=== PATIENT | female | born 1970 | race Caucasian/White ===

== ENCOUNTER → 2018-04-14 07:24 | Outpatient (CLI) | payer OTHER, SELFPAY ==
[2018-04-14 07:43] LABS: Basophils % 0.4 % (0.1-2.0); Eosinophils # 0.1 K/mm3 (0.0-0.4); Eosinophils % 1.6 % (0.1-12.0); Hematocrit 45.3 % (37.0-47.0); Hemoglobin 14.6 g/dL (12.2-16.2); Lymphocytes # 1.3 K/mm3 (0.7-4.5); Mean Corpuscular HGB Conc 32.2 g/dL (31.8-35.4); Mean Corpuscular Hemoglobin 31.3 pg (27.0-31.2); Mean Corpuscular Volume 97.3 fl (81-99); Mean Platelet Volume 7.4 fl (7.4-10.4); Monocytes # 0.3 K/mm3 (0.1-1.0); Monocytes % 4.7 % (1.7-9.3); Neutrophils # 3.7 K/mm3 (1.8-7.8); Neutrophils % 69.3 % (37.0-80.0); Platelet Count 331 K/mm3 (142-424); Red Blood Count 4.65 M/mm3 (4.20-5.40); Red Cell Distribution Width 13.5 % (11.5-17.5); White Blood Count 5.3 K/mm3 (4.8-10.8)
[2018-04-14 09:34] LABS: Alanine Aminotransferase 27 U/L (12-78); Albumin Level 3.9 gm/dL (3.4-5.0); Alkaline Phosphatase 107 U/L (46-116); Aspartate Amino Transferase 14 U/L (15-37); Bilirubin,Direct 0.1 mg/dL (0.0-0.2); Bilirubin,Indirect 0.4 mg/dL (0.0-0.9); Bilirubin,Total 0.5 mg/dL (0.2-1.0); Blood Urea Nitrogen 6 mg/dL (7-18); Calcium 8.9 mg/dL (8.5-10.1); Carbon Dioxide 23 mmol/L (21.0-32.0); Chloride 108 mmol/L (98-107); Chol/HDL Ratio 5.5 (1-3.5); Cholesterol 224 mg/dL (140-200); Creatinine,Serum 0.73 mg/dL (0.55-1.02); Estimated Glomerular Filt Rate 86 ml/min (>60); GFR (African American) 104 ML/MIN (>60); Glucose 88 mg/dL (74-106); HDL Cholesterol 41 mg/dL (29-89); LDL Cholesterol 147 mg/dL (0-130); Sodium 143 mmol/L (136-145); Total Protein,Serum 7.3 gm/dL (6.4-8.2); Triglycerides 182 mg/dL (30-200); VLDL Cholesterol 36 mg/dL (0-40)
== END ==
PROVIDERS: PCP Family Medicine; Visit Provider Internal Medicine
DX: E78.5 Hyperlipidemia, unspecified (principal); I25.10 Atherosclerotic heart disease of native coronary artery without angina pectoris; I42.9 Cardiomyopathy, unspecified
CPT/HCPCS: 36415; 80048; 80061; 80076; 85025

== ENCOUNTER 2018-08-12 07:57 | Observation (INO) ==
--- NOTE | 2018-08-12 08:07 | Emergency Department Note ---
ED Disposition Clinical Impression: Chest pain Qualifiers: Chest pain type: precordial pain Qualified Code(s): R07.2 - Precordial pain Disposition: Still a Patient Condition on Discharge: Good - Critical Care Critical Care Time: No Attestation: On , the high probability of a clinically significant, sudden or life threatening deterioration of the following system(s) required my full and direct attention, intervention and personal management. The time I documented below is in addition to time spent performing reported procedures but includes the following listed in this critical care notation. Medical Decision Making - Blake Inquiry Pt receiving controlled substance: No Vital Signs: 08/12/18 07:57 08/12/18 08:17 08/12/18 08:19 Temperature 98.1 F Temperature Source Oral Pulse Rate [Apical] 70 71 73 Respiratory Rate 18 18 Blood Pressure [Right Arm] 142/84 H 142/84 H 128/87 Blood Pressure Mean [Right Arm] 103 103 100 Blood Pressure Source [Right Arm] Automatic Cuff Automatic Cuff Automatic Cuff Blood Pressure Position [Right Arm] Sitting Sitting 02 Sat by Pulse Oximetry 100 99 98 Oxygen Delivery Method Room Air Room Air Room Air 08/12/18 08:28 08/12/18 08:43 08/12/18 09:05 Temperature Temperature Source Pulse Rate [Apical] 73 78 78 Respiratory Rate 18 18 18 Blood Pressure [Right Arm] 110/70 113/68 114/73 Blood Pressure Mean [Right Arm] 83 83 86 Blood Pressure Source [Right Arm] Automatic Cuff Automatic Cuff Automatic Cuff Blood Pressure Position [Right Arm] Sitting Sitting Sitting 02 Sat by Pulse Oximetry 99 97 98 Oxygen Delivery Method Room Air Room Air - Lab Data Lab Results 08/12/18 08:05: WBC 5.1, RBC 4.76, Hgb 14.7, Hct 46.6, MCV 97.8, MCH 30.8, MCHC 31.5 L, RDW 13.7, Plt Count 327, MPV 7.0 L, Neut % (Auto) 61.3, Lymph % (Auto) 30.4, [place] % (Auto) 6.8, Eos % (Auto) 1.0, Baso % (Auto) 0.6, Neut # (Auto) 3.1, Lymph # (Auto) 1.5, [place] # (Auto) 0.3, Eos # (Auto) 0.1, Baso # (Auto) 0.0 08/12/18 08:05: Sodium 139, Potassium 3.8, Chloride 104, Carbon Dioxide 26, Anion Gap 12.8, BUN 6 L, Creatinine 0.79, Estimated Creat Clear 102, Estimated GFR 78, Est GFR ( Amer) 95, Glucose 105, Calcium 8.6, Troponin I < 0.02 08/12/18 08:30: Urine Color Yellow, Urine Appearance Sl cloudy, Urine pH 7.0, Ur Specific [place] 1.010, Urine Protein Negative, Urine Glucose (UA) Negative, Urine Ketones Negative, Urine Blood Trace-l, Urine Nitrate Negative, Urine Bilirubin Negative, Urine Urobilinogen 0.2, Ur Leukocyte Esterase Negative, Urine RBC 3-5, Urine WBC Occasional, Ur Squamous Epith Cells 3-5, Urine Bacteria 1+ Result diagrams: 08/12/18 08:05 08/12/18 08:05 Orders (Tests/Meds): ED MEDICATIONS Generic Name Dose Route Start Last Admin Trade Name Freq PRN Reason Stop Dose Admin Diphenhydramine HCl 50 mg 08/12/18 09:38 Benadryl 50mg/1ml Vial IV 08/12/18 09:39 ONCE ONE Sodium Chloride 1,000 mls @ 50 mls/hr 08/12/18 09:45 Sod Chlor 0.9% 1000ml Bag IV 09/11/18 09:44 .Q20H LOIS Nitroglycerin 0.4 mg 08/12/18 08:15 08/12/18 08:17 Nitrostat 0.4mg Sl Tablet SL 09/11/18 08:14 0.4 mg Q5MINP PRN Administration Chest Pain Sodium Chloride 10 ml 08/12/18 09:38 Saline Flush 10ml Syringe IV 09/11/18 09:37 NEEDED PRN Maintain IV Site Sodium Chloride 10 ml 08/12/18 09:38 Saline Flush 10ml Syringe IV 09/11/18 09:37 NEEDED PRN Maintain IV Site Discontinued Medications Generic Name Dose Route Start Last Admin Trade Name Freq PRN Reason Stop Dose Admin Aspirin 243 mg 08/12/18 08:04 08/12/18 08:07 Aspirin 81mg Chewable Tablet PO 08/12/18 08:05 243 mg ONCE ONE Administration Nitroglycerin 1 gm 08/12/18 08:35 08/12/18 08:40 Nitroglycerin 1 Inch Oint Udp TD 08/12/18 08:36 1 gm ONCE ONE Administration ORDERS Category Date Time Status UA [Urinalysis and Microscopic] Stat Lab 08/12/18 08:30 Ordered - Radiology Data #1 Image(s): Chest Image Reviewed: Yes I reviewed the patient's radiology image Preliminary Findings: Normal/NAD - ECG Data Tracing #1 EKG interpreted by Yaya Mijares MD: Rhythm: sinus Rate: 77 [place]: normal Ectopy: none Conduction: normal ST Segment Changes: none T Wave Changes: none Q Waves: none No evidence of acute ischemia or injury - Physician Consults Physician Consulted: Rubens Time: 08:30 Reason -: Cardiology Eval/Care Comment/Response: seen by Fallon in ED. Admit to PCP. Dr. Art will be here at 3 pm Additional Consult: Ankit Time: 09:30 Reason -: Admission Comment/Response: Agrees to admit the patient to the hospital. We discussed the patient's clinical information, including history, exam, laboratory and radiology results and ED course. Per hospital procedure, I will write temporary bridge inpatient orders on the patient. Specific orders requested by the admitting physician: Per cardiology. Serial cardiac enzymes. General Adult HPI - General Chief complaint: Chest Pain Stated complaint: chest pain Time Seen by Provider: 08/12/18 08:06 Mode of Arrival: Ambulatory Limitations: No Limitations Description of Symptoms (Recalled from ER Triage Doc. by RN): Pt report chest tightness and pain radiating down her L arm. Pt reports she was leaving her house at approx 0700 this morning began feeling hot all over and then began having chest tightness. - History of Present Illness HPI narrative: At approximately 6:50 AM she developed chest pressure going into both arms. Not really short of breath but a feeling of tenseness or anxiety. Some discomfort i n the back of her neck. Sweatiness. No nausea. Current discomfort is 3/10 in the precordial area. She had 81 mg aspirin this morning, no nitroglycerin prior to arrival. Prior history of [place] in stents done in [place] by Dr. Bedoya 3 years ago. No stress test or angiogram since then. She does continue to smoke. This is the most significant episode of chest pain she has had since her stent placement. - Related Data Home Medications Medication Instructions Recorded Confirmed aspirin 81 mg tablet,delayed 81 mg PO DAILY 04/15/18 08/12/18 release omeprazole 20 mg capsule,delayed 20 mg PO DAILY 04/15/18 08/12/18 release Ezetimibe 10 mg PO DAILY 08/12/18 08/12/18 Rosuvastatin Calcium 20 mg PO DAILY 08/12/18 08/12/18 Previous Rx's Medication Instructions Recorded nitroglycerin 0.4 mg sublingual 0.4 mg SUBLINGUAL Q5-15M PRN #30 04/16/18 tablet tab Allergies Allergy/AdvReac Type Severity Reaction Status Date / Time ibuprofen [IBUPROFEN] Allergy Intermediate I-RASH Verified 08/12/18 08:34 [facility] History - Hepatitis A Screen Drug use history?: No High risk sexual behaviors?: No History of sexually transmitted infection?: No Currently employed?: No Childcare worker?: No Do you have indoor plumbing?: Yes Do you have electricity?: Yes Attestation statement:: This patient has been screened for Hepatitis A risk factors. I have reviewed the patient's past medical history: Yes Medical History: Denies:: Cancer, Diabetes Mellitus Type 1, Diabetes Mellitus Type 2, MRSA - Social History Smoking Status: Current every day smoker Alcohol Intake: never - Psychiatric History Expresses thoughts of harming self/others: None Suicide Plan Description: No Plan ROS Obtained: Yes All systems reviewed & no additional complaints - Constitutional Constitutional: Denies fever(s) - Cardiovascular Cardiovascular: Reports chest pain, Reports diaphoresis - Respiratory Respiratory: No dyspnea - Gastrointestinal Gastrointestingal: Reports: nausea. Denies: vomiting Physical Exam - General General appearance: alert, in no apparent distress - Head Head exam: atraumatic, normocephalic - Eye Eye exam: Present: normal appearance, PERRL, EOMI - ENT ENT exam: Present: mucous membranes moist - Neck Neck exam: Present: normal inspection, trachea midline - Chest Chest inspection: Present: normal inspection, symmetric chest wall rise - Respiratory Respiratory exam: Present: normal lung sounds bilaterally. Absent: respiratory distress - Cardiovascular Cardiovascular exam: Present: regular rate, normal rhythm, normal heart sounds - Abdominal Exam Abdominal exam: Present: soft. Absent: distention, tenderness - Extremities Exam Extremities exam: Present: normal inspection, full ROM, other (Peripheral pulses 2+ and symmetric in all 4 extremities, no pulse deficit or asymmetry). Absent: tenderness - Back Exam Back exam: Present: straight leg raise (R) - Neurological Exam Neurological exam: Present: alert, oriented X3 - Psychiatric Psychiatric exam: Present: normal affect, normal mood - Skin Skin exam: Present: warm, dry
[2018-08-12 08:15] LABS: Basophils % 0.6 % (0.1-2.0); Eosinophils # 0.1 K/mm3 (0.0-0.4); Hematocrit 46.6 % (37.0-47.0); Hemoglobin 14.7 g/dL (12.2-16.2); Lymphocytes # 1.5 K/mm3 (0.7-4.5); Lymphocytes % 30.4 % (10-50); Mean Corpuscular HGB Conc 31.5 g/dL (31.8-35.4); Mean Corpuscular Hemoglobin 30.8 pg (27.0-31.2); Mean Corpuscular Volume 97.8 fl (81-99); Monocytes # 0.3 K/mm3 (0.1-1.0); Monocytes % 6.8 % (1.7-9.3); Neutrophils # 3.1 K/mm3 (1.8-7.8); Neutrophils % 61.3 % (37.0-80.0); Platelet Count 327 K/mm3 (142-424); Red Blood Count 4.76 M/mm3 (4.20-5.40); Red Cell Distribution Width 13.7 % (11.5-17.5); White Blood Count 5.1 K/mm3 (4.8-10.8)
[2018-08-12 08:28] LABS: Anion Gap 12.8 mEq/L (5-15); Blood Urea Nitrogen 6 mg/dL (7-18); Calcium 8.6 mg/dL (8.5-10.1); Carbon Dioxide 26 mmol/L (21.0-32.0); Chloride 104 mmol/L (98-107); Glucose 105 mg/dL (74-106); Potassium 3.8 mmoL/L (3.5-5.1); Sodium 139 mmol/L (136-145)
[2018-08-12 08:40] LABS: Appearance,Urine SL CLOUDY (Clear); Bilirubin,Urine Negative (Negative); Blood, Urine TRACE-L (Negative); Color,Urine YELLOW (Yellow); Glucose,Urine (UA) Negative (Negative); Ketones,Urine Negative (Negative); Leukocyte Esterase,Urine Negative (Negative); Microscopic, Urine URINE MICROSCOPIC (MICROSCOPIC); Protein,Urine Negative (Negative); Urobilinogen,Urine 0.2 EU/dl (0.2)
[2018-08-12 08:50] LABS: WBC,Urine Occasional #/hpf (0-3)
[2018-08-12 08:51] LABS: Bacteria,Urine 1+ /lpf
--- NOTE | 2018-08-12 11:29 | Consult Report ---
History of Present Illness Consult date: 08/12/18 (@ 3417) Requesting physician: Yaya Mijares Consult reason: chest pain Chief complaint: chest pain History of present illness: The patient is a 47-year-old white female who presented to the emergency department with complaints of chest pain. She states that her symptoms started around 6:50 AM this morning on her way to work. She had sudden onset of substernal chest pressure that radiated to both arms and the back of her neck. The patient reports that she felt nauseated and diaphoretic as well as very queasy and as if she were going to have a bowel movement. She rates the pain a 4 out of 10. She denies any shortness of breath. She states that her symptoms lasted for approximately 30 minutes. She does report that here in the last few weeks she has been having a few mild episodes of chest pain but nothing like what she experienced this morning. She states that her symptoms are the same symptoms that she had with her HI back in 2014. She states that she feels just like she did prior to needing stents the last time. He does have a history of coronary artery disease with stenting. She continues to smoke. She was given nitro glycerin and Nitropaste in the emergency department and her chest pain and pressure has improved. She denies any fever chills vomiting diarrhea PND orthopnea. She reports this morning during her episode she felt really nervous and anxious. She also reports that over the last week or so she has had episodes of dizziness which is how she started out when she had her previous HI. [facility] History Medical History: Reports:: Atherosclerotic Heart Disease, Hyperlipidemia, Hypertension, Myocardial Infarction Denies:: Cancer, Diabetes Mellitus Type 1, Diabetes Mellitus Type 2, MRSA Have you ever received a pneumonia vaccine?: No Have you received a flu vaccine this season?: No Other Surgeries: Yes: Cardiac Catheterization, Cholecystectomy, Coronary Stent, Tubal Ligation - *Social History Educational Level: Completed High School Smoking Status: Current every day smoker Alcohol Intake: never Occupational Status: employed Housing: house Household Members: spouse Travel in the last 8 weeks: None - Psychiatric History Expresses thoughts of harming self/others: None Suicide Plan Description: No Plan *Family Hx:: Cancer, Coronary Artery Disease, Heart Attack, Hyperlipidemia, Hypertension Meds Home Medications Medication Instructions Recorded Confirmed Type aspirin 81 mg tablet,delayed 81 mg PO DAILY 04/15/18 08/12/18 History release omeprazole 20 mg capsule,delayed 20 mg PO DAILY 04/15/18 08/12/18 History release nitroglycerin 0.4 mg sublingual 0.4 mg SUBLINGUAL Q5-15M PRN #30 04/16/18 08/12/18 Rx tablet tab Ezetimibe 10 mg PO DAILY 08/12/18 08/12/18 History Rosuvastatin Calcium 20 mg PO DAILY 08/12/18 08/12/18 History Allergies Allergy/AdvReac Type Severity Reaction Status Date / Time ibuprofen [IBUPROFEN] Allergy Intermediate I-RASH Verified 08/12/18 08:34 Review of Systems - Review of Systems Review of systems:: pertinent systems reviewed and negative unless documented below - *Cardiovascular Reports chest pain, Reports chest pain at rest, Reports radiating jaw, neck or arm pain - *Gastrointestinal Reports nausea - *Neurologic Reports dizziness Exam Vital signs and Labs for Last 24 Hours: Temp Pulse Resp BP Pulse Ox 98.6 F 62 17 113/72 99 08/12/18 10:07 08/12/18 10:07 08/12/18 10:07 08/12/18 10:07 08/12/18 10:42 Laboratory Results - last 24 hr 08/12/18 08:05: WBC 5.1, RBC 4.76, Hgb 14.7, Hct 46.6, MCV 97.8, MCH 30.8, MCHC 31.5 L, RDW 13.7, Plt Count 327, MPV 7.0 L, Neut % (Auto) 61.3, Lymph % (Auto) 30.4, [place] % (Auto) 6.8, Eos % (Auto) 1.0, Baso % (Auto) 0.6, Neut # (Auto) 3.1, Lymph # (Auto) 1.5, [place] # (Auto) 0.3, Eos # (Auto) 0.1, Baso # (Auto) 0.0 08/12/18 08:05: Sodium 139, Potassium 3.8, Chloride 104, Carbon Dioxide 26, Anion Gap 12.8, BUN 6 L, Creatinine 0.79, Estimated Creat Clear 102, Estimated GFR 78, Est GFR ( Amer) 95, Glucose 105, Calcium 8.6, Troponin I < 0.02 08/12/18 08:30: Urine Color Yellow, Urine Appearance Sl cloudy, Urine pH 7.0, Ur Specific [place] 1.010, Urine Protein Negative, Urine Glucose (UA) Negative, Ur ine Ketones Negative, Urine Blood Trace-l, Urine Nitrate Negative, Urine Bilirubin Negative, Urine Urobilinogen 0.2, Ur Leukocyte Esterase Negative, Urine RBC 3-5, Urine WBC Occasional, Ur Squamous Epith Cells 3-5, Urine Bacteria 1+ I & O for Last 24 hours: Intake & Output 08/09/18 08/10/18 08/11/18 08/12/18 23:59 23:59 23:59 23:59 Weight 156 lb 6 oz Narrative: Her EKG is sinus rhythm. - Constitutional no acute distress, average body habitus, cooperative - *Routine HEENT Exam Head: Present: normocephalic, atraumatic Eye: Present: EOMI, PERRL ENT: Present: mucous membranes moist - *Routine Neck Exam Present: supple, full ROM, normal carotid upstroke. Absent: JVD, carotid bruit, lymphadenopathy - *Routine Respiratory Exam Present: CTA bilaterally - *Routine Cardiovascular Exam Present: RRR, Normal S1, Normal S2. Absent: murmur, gallop, rubs - *Routine Abdominal Exam Present: soft, normoactive bowel sounds. Absent: tenderness, distended, rebound - *Routine Extremities Exam Present: full ROM, pulses intact. Absent: cyanosis, clubbing, edema - *Routine Skin Exam Present: intact, warm. Absent: erythema, rash - *Routine Neurological Exam Present: alert, oriented X3, CN II-XII intact. Absent: sensory deficit, motor deficit - Routine Psychiatric Exam Present: normal affect, normal thought process Assessment and Plan (1) Typical angina Current visit: Yes Status: Acute Category: Medical Code(s): I20.9 - Angina pectoris, unspecified (2) Coronary arteriosclerosis Current visit: No Status: Chronic Category: Medical Code(s): I25.10 - Atherosclerotic heart disease of [place] coronary artery without angina pectoris (3) HTN (hypertension) Current visit: Yes Status: Chronic Category: Medical Code(s): I10 - Essential (primary) hypertension (4) Smoker Current visit: Yes Status: Chronic Category: Medical Code(s): F17.200 - Nicotine dependence, unspecified, uncomplicated (5) Hyperlipidemia Current visit: No Status: Chronic Qualifiers: Hyperlipidemia type: other hyperlipidemia Qualified Code(s): E78.49 - Other hyperlipidemia; E78.4 - Other hyperlipidemia Category: Medical Code(s): E78.5 - Hyperlipidemia, unspecified (6) Stented coronary artery Current visit: No Status: Chronic Category: Surgical Code(s): Z95.5 - Presence of coronary angioplasty implant and graft (7) Dizziness Current visit: Yes Status: Acute Category: Medical Code(s): R42 - Dizziness and giddiness - Assessment and plan all Dx Assessment and Plan for all problems:: Plan: 1. The patient was admitted to the hospital with complaints of chest pain that started abruptly this morning. The patient is having typical angina. She has known coronary artery disease. The patient continues to smoke. She has high risk factors for coronary artery disease progression. We will plan to proceed with left cardiac catheterization today to evaluate her coronary artery disease. 2. We will get an echocardiogram to evaluate her LV function. 3. Her LDL goal is less than 55. We will get a lipid panel. 4. Her blood pressure is well controlled. 5. Tobacco cessation is highly advised and counseled. 6. The patient has been added on the risks and benefits of proceeding with left cardiac catheterization. The patient has verbalized understanding and is agreeable in proceeding with the procedure. 7. Will continue Nitropaste at this time for her angina. 8. Further recommendations will be made pending the patient's response to treatment and the results of her echocardiogram and left cardiac catheterization later today.
--- NOTE | 2018-08-12 15:28 | Pharmacy Consult Notes ---
[facility] Pharmacy VTE Monitoring - Patient Demographics Admission date: 08/12/18 Report Date: 08/12/18 Time: 15:28 Allergies/Adverse Reactions: Patient Allergies ibuprofen [IBUPROFEN] Allergy (Intermediate, Verified 08/12/18 08:34) I-RASH Height: 1.68 m Weight: 70.931 kg Patient Problems: Current Active Problems Chest pain (Acute) Typical angina (Acute) HTN (hypertension) (Chronic) Smoker (Chronic) Dizziness (Acute) - VTE Risk Labs: VTE Related Lab Results Hgb 14.7 g/dL (12.2-16.2) 08/12/18 08:05 Hct 46.6 % (37.0-47.0) 08/12/18 08:05 Plt Count 327 K/mm3 (142-424) 08/12/18 08:05 BUN 6 mg/dL (7-18) L 08/12/18 08:05 Creatinine 0.79 mg/dL (0.55-1.02) 08/12/18 08:05 Estimated Creat Clear 102 mL/min (50-200) 08/12/18 08:05 Was VTE Risk Assessment Performed: Yes VTE Score: 2 - Prophylaxis VTE Prophylaxis Ordered?: Yes Types of VTE Prophylaxis: TEDS Knee High Location of Applied Device: Bilateral Lower Extremeties
[2018-08-12 16:07] LABS: Chol/HDL Ratio 3.1 (1-3.5)
--- NOTE | 2018-08-12 17:12 | History & Physical Report ---
*Admission Date: 08/12/18 *Chief complaint: chest pain *History of present illness: 47 year old female presented to the ER this morning via private vehicle. Reports waking up this morning feeling normal but while getting ready for work started having hot flashes, she figured this would get better after being outside in the cold but it did not. Symptoms progressed with chest pain, hot flashes, and numbness/tingling going down both right and left arms. She sat in the [employer] parking lot trying to decide if this was indigestion or cardiac related, she couldn't decipher and came to the ER just for peace of mind. She has nitro SL at home but did not try this, did not attempt antacid either. She tells me symptoms were nearly the same three years ago when she had an DC and cardiac stenting. In the ER she received chest pain protocol. She is currently NPO and resting supine in bed with at bedside. Not experiencing any of these symptoms at this time and has not since late this morning/early afternoon. Cardiac catheterization is scheduled for 5:15 this evening. [facility] History Medical History: Reports:: Atherosclerotic Heart Disease, Hyperlipidemia, Hypertension, Myocardial Infarction Denies:: Cancer, Diabetes Mellitus Type 1, Diabetes Mellitus Type 2, MRSA Have you ever received a pneumonia vaccine?: No Have you received a flu vaccine this season?: No Other Surgeries: Yes: Cardiac Catheterization, Cholecystectomy, Coronary Stent, Tubal Ligation - *Social History Educational Level: Completed High School Smoking Status: Current every day smoker # Packs/Day (cigarettes): 1 Alcohol Intake: never Occupational Status: employed Housing: house Household Members: spouse Travel in the last 8 weeks: None - Psychiatric History Expresses thoughts of harming self/others: None Suicide Plan Description: No Plan *Family Hx:: Cancer, Coronary Artery Disease, Heart Attack, Hyperlipidemia, Hypertension Review of Systems - Constitutional Reports lack of energy, Denies body ache(s), Denies chills - Eyes Denies blurry vision - ENT Reports dizziness - *Cardiovascular Reports chest pain, Reports chest pain at rest, Reports shortness of breath, Denies irregular heart rhythm - *Respiratory Reports cough - *Gastrointestinal Denies abdominal pain, Denies heartburn, Denies nausea - *Neurologic Reports dizziness, Denies memory loss - Endocrine Reports heat intolerance Meds Home Medications Medication Instructions Recorded Confirmed Type aspirin 81 mg tablet,delayed 81 mg PO DAILY 04/15/18 08/12/18 History release omeprazole 20 mg capsule,delayed 20 mg PO DAILY 04/15/18 08/12/18 History release nitroglycerin 0.4 mg sublingual 0.4 mg SUBLINGUAL Q5-15M PRN #30 04/16/18 08/12/18 Rx tablet tab Ezetimibe 10 mg PO DAILY 08/12/18 08/12/18 History Rosuvastatin Calcium 20 mg PO DAILY 08/12/18 08/12/18 History Allergies Allergy/AdvReac Type Severity Reaction Status Date / Time ibuprofen [IBUPROFEN] Allergy Intermediate I-RASH Verified 08/12/18 08:34 Exam Vital signs and Labs for Last 24 Hours: Temp Pulse Resp BP Pulse Ox 98.0 F 60 16 102/60 L 98 08/12/18 16:00 08/12/18 16:00 08/12/18 16:00 08/12/18 16:00 08/12/18 16:00 Laboratory Results - last 24 hr 08/12/18 08:05: WBC 5.1, RBC 4.76, Hgb 14.7, Hct 46.6, MCV 97.8, MCH 30.8, MCHC 31.5 L, RDW 13.7, Plt Count 327, MPV 7.0 L, Neut % (Auto) 61.3, Lymph % (Auto) 30.4, [place] % (Auto) 6.8, Eos % (Auto) 1.0, Baso % (Auto) 0.6, Neut # (Auto) 3.1, Lymph # (Auto) 1.5, [place] # (Auto) 0.3, Eos # (Auto) 0.1, Baso # (Auto) 0.0 08/12/18 08:05: Sodium 139, Potassium 3.8, Chloride 104, Carbon Dioxide 26, Anion Gap 12.8, BUN 6 L, Creatinine 0.79, Estimated Creat Clear 102, Estimated GFR 78, Est GFR ( Amer) 95, Glucose 105, Calcium 8.6, Troponin I < 0.02 08/12/18 08:05: Triglycerides 160, Cholesterol 144, LDL Cholesterol 65, VLDL Cholesterol 32, HDL Cholesterol 47, Cholesterol/HDL Ratio 3.1 08/12/18 08:30: Urine Color Yellow, Urine Appearance Sl cloudy, Urine pH 7.0, Ur Specific [place] 1.010, Urine Protein Negative, Urine Glucose (UA) Negative, Urine Ketones Negative, Urine Blood Trace-l, Urine Nitrate Negative, Urine Bilirubin Negative, Urine Urobilinogen 0.2, Ur Leukocyte Esterase Negative, Urine RBC 3-5, Urine WBC Occasional, Ur Squamous Epith Cells 3-5, Urine Bacteria 1+ 08/12/18 13:21: Troponin I 0.05 08/12/18 16:00: Troponin I 0.08 H I & O for Last 24 hours: Intake & Output 08/09/18 08/10/18 08/11/18 08/12/18 23:59 23:59 23:59 23:59 Intake Total 231 / 231 Balance 231 / 231 Weight 156 lb 6 oz - Constitutional no acute distress - *Routine HEENT Exam Head: Present: normocephalic, atraumatic - *Routine Respiratory Exam Present: CTA bilaterally. Absent: accessory muscle use - *Routine Cardiovascular Exam Present: RRR, Normal S1, Normal S2. Absent: murmur, bradycardia, tachycardia, irregular rhythm - *Routine Abdominal Exam Present: soft, normoactive bowel sounds. Absent: tenderness, distended - *Routine Extremities Exam Present: pulses intact. Absent: edema - *Routine Neurological Exam Present: alert, oriented X3 - Routine Psychiatric Exam Present: normal affect Assessment and Plan (1) Typical angina Current visit: Yes Status: Acute Category: Medical Code(s): I20.9 - Angina pectoris, unspecified (2) Coronary arteriosclerosis Current visit: No Status: Chronic Category: Medical Code(s): I25.10 - Atherosclerotic heart disease of [place] coronary artery without angina pectoris (3) HTN (hypertension) Current visit: Yes Status: Chronic Category: Medical Code(s): I10 - Essential (primary) hypertension (4) Smoker Current visit: Yes Status: Chronic Category: Medical Code(s): F17.200 - Nicotine dependence, unspecified, uncomplicated (5) Hyperlipidemia Current visit: No Status: Chronic Qualifiers: Hyperlipidemia type: other hyperlipidemia Qualified Code(s): E78.49 - Other hyperlipidemia; E78.4 - Other hyperlipidemia Category: Medical Code(s): E78.5 - Hyperlipidemia, unspecified (6) Stented coronary artery Current visit: No Status: Chronic Category: Surgical Code(s): Z95.5 - Presence of coronary angioplasty implant and graft (7) Dizziness Current visit: Yes Status: Acute Category: Medical Code(s): R42 - Dizziness and giddiness - Assessment and plan all Dx Assessment and Plan for all problems:: Patient is already inquiring about discharge home, cardiology will ultimately make this decision based upon findings with cardiac catheterization. If cardiology deems discharge this evening appropriate then that is OK from our standpoint too. I have discussed this with Dr Pham. He is not ignition mechanic but is OK with being contacted regarding DC home tonight.
[2018-08-13 06:47] LABS: Basophils % 0.3 % (0.1-2.0); Monocytes # 0.6 K/mm3 (0.1-1.0)
[2018-08-13 06:57] LABS: Anion Gap 16.7 mEq/L (5-15); Calcium 7.8 mg/dL (8.5-10.1); Potassium 3.7 mmoL/L (3.5-5.1)
[2018-08-13 06:59] LABS: Eosinophils % 0.3 % (0.1-12.0); Hematocrit 38.7 % (37.0-47.0); Lymphocytes # 1.4 K/mm3 (0.7-4.5); Lymphocytes % 14.3 % (10-50); Mean Corpuscular HGB Conc 32.1 g/dL (31.8-35.4); Mean Corpuscular Hemoglobin 31.5 pg (27.0-31.2); Mean Corpuscular Volume 98.1 fl (81-99); Mean Platelet Volume 7.2 fl (7.4-10.4); Monocytes % 5.8 % (1.7-9.3); Neutrophils # 7.6 K/mm3 (1.8-7.8); Neutrophils % 79.3 % (37.0-80.0); Platelet Count 277 K/mm3 (142-424); Red Blood Count 3.95 M/mm3 (4.20-5.40); Red Cell Distribution Width 13.9 % (11.5-17.5); White Blood Count 9.6 K/mm3 (4.8-10.8)
[2018-08-13 07:01] LABS: Hemoglobin 12.4 g/dL (12.2-16.2)
--- NOTE | 2018-08-13 07:09 | Discharge Summary ---
General - General Admission date:: 08/12/18 Discharge date: 08/13/18 HPI HPI: 47 year old female presented to the ER this morning via private vehicle. Reports waking up this morning feeling normal but while getting ready for work started having hot flashes, she figured this would get better after being outside in the cold but it did not. Symptoms progressed with chest pain, hot flashes, and numbness/tingling going down both right and left arms. She sat in the [employer] parking lot trying to decide if this was indigestion or cardiac related, she couldn't decipher and came to the ER just for peace of mind. She has nitro SL at home but did not try this, did not attempt antacid either. She tells me symptoms were nearly the same three years ago when she had an IN and cardiac stenting. In the ER she received chest pain protocol. She is currently NPO and resting supine in bed with at bedside. Not experiencing any of these symptoms at this time and has not since late this morning/early afternoon. Cardiac catheterization is scheduled for 5:15 this evening. Hospital Course Hospital Course: Patient was admitted. Serial troponins were performed which kori slightly from 0.0 2.08. Patient underwent cardiac catheterization on the evening of August 12. Findings are as follows: 1. Trivial coronary artery disease 2. Patent stent in the mid left anterior descending 3. Patent stent in the mid large dominant right coronary artery 4. Normal left ventricular systolic function 5. Normal left ventricular end-diastolic pressure Echo management was recommended and patient has had normal blood pressure and her hyperlipidemia is being managed by Dr. Boss the most important thing patient can do at this point is stop smoking. Smoking cessation was emphasized to the patient. Evening after catheterization patient experience some nausea lightheadedness with standing with some apparent minor swelling around the cath site. Manual compression was applied. By the following morning patient was ambulating with difficulty. Patient was discharged home. She will follow-up with cardiology in 1-2 weeks. Objective Vital signs: Temp Pulse Resp BP Pulse Ox 99.2 F 74 18 100/60 L 94 L 08/13/18 04:00 08/13/18 04:00 08/13/18 04:00 08/13/18 04:00 08/13/18 04:00 no acute distress - *Routine Respiratory Exam Present: CTA bilaterally - *Routine Cardiovascular Exam Present: RRR, Normal S1, Normal S2 Results Labs on day of discharge: Labs from last 24 hours 08/13/18 08/12/18 08/12/18 06:35 16:00 13:21 WBC 9.6 D RBC 3.95 L Hgb 12.4 D Hct 38.7 MCV 98.1 MCH 31.5 H MCHC 32.1 RDW 13.9 Plt Count 277 MPV 7.2 L Neut % (Auto) 79.3 Lymph % (Auto) 14.3 [place] % (Auto) 5.8 Eos % (Auto) 0.3 Baso % (Auto) 0.3 Neut # (Auto) 7.6 Lymph # (Auto) 1.4 [place] # (Auto) 0.6 Eos # (Auto) 0.0 Baso # (Auto) 0.0 Sodium Potassium Chloride Carbon Dioxide Anion Gap BUN Creatinine Estimated Creat Clear Estimated GFR Est GFR ( Amer) Glucose Calcium Troponin I 0.08 H 0.05 Triglycerides Cholesterol LDL Cholesterol VLDL Cholesterol HDL Cholesterol Cholesterol/HDL Ratio Urine Color Urine Appearance Urine pH Ur Specific [place] Urine Protein Urine Glucose (UA) Urine Ketones Urine Blood Urine Nitrate Urine Bilirubin Urine Urobilinogen Ur Leukocyte Esterase Urine RBC Urine WBC Ur Squamous Epith Cells Urine Bacteria 08/12/18 08/12/18 08/12/18 08:30 08:05 08:05 WBC RBC Hgb Hct MCV MCH MCHC RDW Plt Count MPV Neut % (Auto) Lymph % (Auto) [place] % (Auto) Eos % (Auto) Baso % (Auto) Neut # (Auto) Lymph # (Auto) [place] # (Auto) Eos # (Auto) Baso # (Auto) Sodium 139 Potassium 3.8 Chloride 104 Carbon Dioxide 26 Anion Gap 12.8 BUN 6 L Creatinine 0.79 Estimated Creat Clear 102 Estimated GFR 78 Est GFR ( Amer) 95 Glucose 105 Calcium 8.6 Troponin I < 0.02 Triglycerides 160 Cholesterol 144 LDL Cholesterol 65 VLDL Cholesterol 32 HDL Cholesterol 47 Cholesterol/HDL Ratio 3.1 Urine Color Yellow Urine Appearance Sl cloudy Urine pH 7.0 Ur Specific [place] 1.010 Urine Protein Negative Urine Glucose (UA) Negative Urine Ketones Negative Urine Blood Trace-l Urine Nitrate Negative Urine Bilirubin Negative Urine Urobilinogen 0.2 Ur Leukocyte Esterase Negative Urine RBC 3-5 Urine WBC Occasional Ur Squamous Epith Cells 3-5 Urine Bacteria 1+ 08/12/18 08:05 WBC 5.1 RBC 4.76 Hgb 14.7 Hct 46.6 MCV 97.8 MCH 30.8 MCHC 31.5 L RDW 13.7 Plt Count 327 MPV 7.0 L Neut % (Auto) 61.3 Lymph % (Auto) 30.4 [place] % (Auto) 6.8 Eos % (Auto) 1.0 Baso % (Auto) 0.6 Neut # (Auto) 3.1 Lymph # (Auto) 1.5 [place] # (Auto) 0.3 Eos # (Auto) 0.1 Baso # (Auto) 0.0 Sodium Potassium Chloride Carbon Dioxide Anion Gap BUN Creatinine Estimated Creat Clear Estimated GFR Est GFR ( Amer) Glucose Calcium Troponin I Triglycerides Cholesterol LDL Cholesterol VLDL Cholesterol HDL Cholesterol Cholesterol/HDL Ratio Urine Color Urine Appearance Urine pH Ur Specific [place] Urine Protein Urine Glucose (UA) Urine Ketones Urine Blood Urine Nitrate Urine Bilirubin Urine Urobilinogen Ur Leukocyte Esterase Urine RBC Urine WBC Ur Squamous Epith Cells Urine Bacteria DS: Diagnosis - Discharge Diagnosis (1) Typical angina Status: Acute (2) Coronary arteriosclerosis Status: Chronic (3) HTN (hypertension) Status: Chronic (4) Smoker Status: Chronic (5) Hyperlipidemia Status: Chronic (6) Stented coronary artery Status: Chronic (7) Dizziness Status: Acute Discharge Plan - Patient Discharge Instructions ACTIVITY: Continue current activity DIET: continue same diet Patient Instructions: DI for Cardiac Catheterization, Nicotine Replacement Therapy for Smoking Cessation During , DI for Surgical Site Infection, DI for Chest Pain, How to Quit Smoking - Follow up Plan Follow up with: Luther Boss MD [Staff Physician] - 1 week Disposition: Home, Self-[facility] Medications: Home Medications Medication Instructions Recorded Confirmed Type aspirin 81 mg tablet,delayed 81 mg PO DAILY 04/15/18 08/12/18 History release omeprazole 20 mg capsule,delayed 20 mg PO DAILY 04/15/18 08/12/18 History release nitroglycerin 0.4 mg sublingual 0.4 mg SUBLINGUAL Q5-15M PRN #30 04/16/18 08/12/18 Rx tablet tab Ezetimibe 10 mg PO DAILY 08/12/18 08/12/18 History Rosuvastatin Calcium 20 mg PO DAILY 08/12/18 08/12/18 History Varenicline Tartrate [Chantix] 0.5 mg PO BID #60 tablet 08/13/18 Rx Prescriptions/Medication Reconciliation: New Varenicline Tartrate [Chantix] 0.5 mg PO BID #60 tablet Continue omeprazole 20 mg capsule,delayed release 20 mg PO DAILY aspirin 81 mg tablet,delayed release 81 mg PO DAILY nitroglycerin 0.4 mg sublingual tablet 0.4 mg SUBLINGUAL Q5-15M PRN #30 tab PRN Reason: chest pain Ezetimibe 10 mg PO DAILY Rosuvastatin Calcium 20 mg PO DAILY
--- NOTE | 2018-08-13 15:53 | Cardiology Report ---
PROCEDURE: 2-D M-mode and color Doppler study INDICATIONS FOR THE TEST: Chest pain X COPD Heart Murmur Tobacco SmokingX Palpitations FatigueX Syncope Edema Hypertension Diabetes Mellitus Rheumatic Fever SOBXDOE Obesity HyperlipidemiaX Family History HDX Additional History CAD,STENTS,CM TDS BREAST IMPLANTS PATIENT INFORMATION HEIGHT: 66 WEIGHT:156 GENDER: Female B/P:113/72 2-D/M-MODE INTERPRETATION: 2-D MEASUREMENTS OBSERVED VALUES IN CMS Right Ventricular Dimension (RVDd) 2.8 Interventricular Septum (Thickness)(IVsd) 1.0 Left Ventricular Internal Dimensions(LVIDd) 4.8 Left Ventricular Posterior Wall (Thickness)(LVPWd) .7 Aortic Root 2.7 Aortic Cusp Separation 1.7 Left Atrial Dimensions (LAD) 2.8 2D 1. Left atrium is normal size, left ventricle is normal size, there is no concentric left ventricular hypertrophy, visually estimated ejection fraction 50% with no regional wall motion abnormality. 2. The right atrium and right ventricle are relatively normal size and function. 3. The aortic valve is minimally thickened and fibrosed. 4. The mitral and tricuspid valve leaflets are grossly normal. 5. The pulmonic valve is poorly visualized. 6. No significant pericardial effusion noted. DOPPLER INTERROGATION: Doppler interrogation of the aortic, mitral and tricuspid valvular presence of mild mitral and tricuspid regurgitation, tricuspid regurgitation jet velocity is inadequate for calculation of the right ventricular systolic pressure, diastolic parameters are within normal range. CONCLUSION: 1. Normal left ventricular size, preserved left ventricular systolic function, visually estimated ejection fraction of 50% with no regional wall motion abnormality, diastolic parameters are within normal range. 2. Mild mitral and tricuspid regurgitation 3. No significant pericardial effusion noted.
== END 2018-08-13 08:27 | disposition home or self-care (01) ==
LOC: SUPCPDRO → 2ND 07:57 → ER 07:57 → 2ND 09:59
PROVIDERS: ADMIT Family Medicine; ATTEND Family Medicine
CPT/HCPCS: 36415; 71010; 71045; 80048; 80061; 81001; 84484; 85025; 93005; 93306; 93458; 93926; 99152; 99284; C1725; C1769; G0378; J1644; Q9967

== ENCOUNTER → 2018-10-16 11:15 | Outpatient (CLI) | payer OTHER, SELFPAY ==
[2018-10-16 12:31] LABS: Free Thyroxine Index 2.5 ug/dL (5.93-13.13); T4 (Thyroxine) 7.8 ug/dl (4.7-13.3); Thyroid Stimulating Hormone 2.05 uIU/ml (0.358-3.740); Triiodothryronine (T3) Uptake 32 % (31-39)
[2018-10-17 09:06] LABS: Estradiol 31.4 pg/mL (.); FSH 7.5 mIU/mL (.); LH 4.9 mIU/mL (.); Triiodothyronine (T3) Free 3.2 pg/mL (2.0-4.4)
== END ==
PROVIDERS: Visit Provider Nurse Practitioner Obstetrics & Gynecology
DX: N95.1 Menopausal and female climacteric states (principal); R53.82 Chronic fatigue, unspecified
CPT/HCPCS: 36415; 82670; 83001; 83002; 84436; 84443; 84479; 84481

== ENCOUNTER → 2018-10-29 16:48 | Outpatient (CLI) | payer OTHER, SELFPAY | PROVIDERS: PCP Family Medicine; Visit Provider Internal Medicine Cardiovascular Disease | DX: R06.02 Shortness of breath (principal); I25.10 Atherosclerotic heart disease of native coronary artery without angina pectoris; R53.83 Other fatigue; Z95.5 Presence of coronary angioplasty implant and graft | CPT/HCPCS: 95806 ==

== ENCOUNTER → 2019-01-28 11:38 | Outpatient (CLI) | payer OTHER, SELFPAY ==
--- NOTE | 2019-01-28 11:46 | XR_ITS ---
XR finger RT min 2V ORDERING PHYSICIAN : Iman Pena APRN PATIENT AGE: 48 years GENDER: Female HISTORY:ITS.REASON: LT RT FINGER INJURY COMPARISON: TECHNIQUE: 3 views. Bone density is normal. There is generalized mild narrowing of the PIP and PIP joints spaces. There is no spur or periarticular erosion or acute fracture. Soft tissues are unremarkable. Impression: No acute process. Nonspecific mild arthritic change involving interphalangeal joints.
== END ==
PROVIDERS: PCP Family Medicine; Visit Provider Nurse Practitioner Family
DX: S69.91XA Unspecified injury of right wrist, hand and finger(s), initial encounter (principal)
CPT/HCPCS: 73140

== ENCOUNTER → 2020-01-26 07:22 | Outpatient (CLI) | payer OTHER, SELFPAY ==
[2020-01-26 08:20] LABS: Alanine Aminotransferase 38 U/L (12-78); Albumin Level 4.2 g/dl (3.5-5.0); Alkaline Phosphatase 78 U/L (38-126); Aspartate Amino Transferase 47 U/L (14-36); Bilirubin,Direct 0.4 mg/dl (0.0-0.4); Bilirubin,Indirect 0.1 mg/dL (0.0-0.9); Bilirubin,Total 0.5 mg/dl (0.2-1.3); Bilirubin,Unconjugated 0.1 mg/dL (0.0-1.1); Chol/HDL Ratio 1.7 (1-3.5); Cholesterol 119 mg/dl (140-200); HDL Cholesterol 72 mg/dl (40-60); Total Protein,Serum 6.8 g/dl (6.3-8.2); Triglycerides 104 mg/dl (30-150); VLDL Cholesterol 21 mg/dL (0-40)
[2020-01-26 08:31] LABS: Direct LDL Cholesterol 38.73 mg/dL (100-129)
== END ==
PROVIDERS: Visit Provider Internal Medicine Cardiovascular Disease
DX: E78.5 Hyperlipidemia, unspecified (principal); I10 Essential (primary) hypertension
CPT/HCPCS: 36415; 80061; 80076

== ENCOUNTER → 2020-05-18 07:59 | Outpatient (CLI) | payer OTHER, SELFPAY ==
[2020-05-18 09:30] LABS: Adenovirus,PCR Not Detected (NotDetected); Bordetella Pertussis Not Detected (NotDetected); Chlamydophila Pneumoniae, PCR Not Detected (NotDetected); Coronavirus 19, PCR Not Detected (NotDetected); Coronavirus 229E Not Detected (NotDetected); Coronavirus NL63 Not Detected (NotDetected); Coronavirus OC43 Not Detected (NotDetected); Coronovirus HKU1,PCR Not Detected (NotDetected); Human Metapneumovirus Not Detected (NotDetected); Influenza A, PCR Not Detected (NotDetected); Influenza AH1, 2009 Not Detected (NotDetected); Influenza AH1, PCR Not Detected (NotDetected); Influenza AH3,PCR Not Detected (NotDetected); Influenza B, PCR Not Detected (NotDetected); Mycoplasma Pneumoniae, PCR Not Detected (NotDetected); Parainfluenza 1, PCR Not Detected (NotDetected); Parainfluenza 2, PCR Not Detected (NotDetected); Parainfluenza 3, PCR Not Detected (NotDetected); Parainfluenza 4, PCR Not Detected (NotDetected); Respiratory Syncytial Virus Not Detected (NotDetected); Rhinovirus/Enterovirus Not Detected (NotDetected)
== END ==
PROVIDERS: PCP Family Medicine; Visit Provider Internal Medicine Adolescent Medicine
DX: Z03.818 Encounter for observation for suspected exposure to other biological agents ruled out (principal)
CPT/HCPCS: 87581; 87633; 87798; U0003

== ENCOUNTER → 2020-07-10 09:53 | Outpatient (CLI) | payer OTHER, SELFPAY ==
--- NOTE | 2020-07-10 09:56 | XR_ITS ---
PROCEDURE: XR KUB CLINICAL INDICATION: RT FLANK PAIN Right flank pain and hematuria COMPARISON: No exams were available for comparison FINDINGS: Surgical clip is present in the right upper quadrant. There is a mild amount of retained colonic feces. There are 3 calcific densities in the right pelvic region which may be due to phleboliths. Cannot exclude the possibility of ureteral calculi. CT may provide further evaluation if clinically desired. IMPRESSION: Nonspecific right-sided pelvic calcifications as described above Dictated by: Clifton Carrero MD 07/10/2020 10:23 Clifton Carrero MD in [place] 07/10/2020 10:23
== END ==
PROVIDERS: PCP Family Medicine; Visit Provider Nurse Practitioner Family
DX: R10.9 Unspecified abdominal pain (principal)
CPT/HCPCS: 74018

== ENCOUNTER → 2020-07-13 15:30 | Outpatient (CLI) | payer OTHER, SELFPAY ==
[2020-07-13 15:32] LABS: Microscopic, Urine URINE MICROSCOPIC (MICROSCOPIC)
[2020-07-13 16:20] LABS: Appearance,Urine TURBID (Clear); Blood, Urine 3+ (Negative); Color,Urine YELLOW (Yellow); Glucose,Urine (UA) Negative (Negative); Ketones,Urine Negative (Negative); Leukocyte Esterase,Urine Negative (Negative); Nitrate,Urine Negative (Negative); Protein,Urine Negative (Negative); Specific Gravity, Urine >= 1.030 (1.005-1.030); Urobilinogen,Urine 0.2 EU/dl (0.2)
[2020-07-13 16:25] LABS: Bilirubin,Urine Negative (Negative)
[2020-07-13 16:44] LABS: Amorphous Sediment,Urine 1+ /lpf; Squamous Epithelial Cell,Urine Occasional #/hpf (0-5)
== END ==
PROVIDERS: Visit Provider Nurse Practitioner Obstetrics & Gynecology
DX: N39.0 Urinary tract infection, site not specified (principal)
CPT/HCPCS: 81001

== ENCOUNTER → 2020-08-02 10:47 | Outpatient (CLI) | payer OTHER, SELFPAY ==
--- NOTE | 2020-08-02 10:48 | CA_ITS ---
APPROVED REPORT EXAM: Comprehensive 2D, Doppler, and color-flow Echocardiogram Supervisor Cd Area: Antonia Barton, RT(R) Ht: 5 ft 6 in Wt: 151lbs BSA: 1.77 BP: 124/76 mmHg Indications: smoker, hx of [place], hyperlipidemia, SOB, [place], CAD, hx CM, breast implants, 2D Dimensions LVOT 2.08 cm (M/F) 1.5-2.5 M-Mode Dimensions RVDd 1.88 cm (0.9-2.6) LA Diam 2.69 cm (1.9-4.0) LVDd 4.61 cm (3.5-5.7) Ao Diam 2.79 cm (2.0-3.7) LVDs 3.50 cm (3.5-5.7) IVSd 1.14 cm (0.6-1.1) PWd 0.81 cm (0.6-1.1) EF (Teich) 48.00% FS 24.10% EDV (Teich) 97.80 mL ESV (Teich) 50.90 mL LV Diastology E Decel Time 150.00 (160-240 msec) E/A Ratio 0.9 MED E' 6.60 (< 7 cm/sec) E'/MED E' Ratio 11.05 (>14) LAT E' 11.00 (<10 cm/sec) E/LAT E' Ratio 6.63 (>14) Mitral Valve MV E Max Jorge. 73.00 (40-130 cm/s) MV A Velocity 79.00 (40-130 cm/s) E/A Ratio 0.92 MV Decel. Time 150.00 (160-240 ms) MV PHT 44.00 ms Left Ventricle Left atrium is normal size, left ventricle is normal in size, there is no concentric left ventricular hypertrophy, visually estimated ejection fraction 55% with no regional wall motion abnormality, diastolic parameters are within normal range. Right Ventricle Right atrium and right ventricle are normal size and contractility. Aortic Valve Aortic valve is minimally thickened and fibrosed, there is no aortic stenosis or aortic insufficiency. Mitral Valve Mitral valve is grossly normal, there is mild mitral regurgitation. Tricuspid Valve Tricuspid valve grossly normal, there is mild tricuspid regurgitation, tricuspid regurgitation jet velocity is inadequate for calculation of the right ventricular systolic pressure. Pulmonic Valve Pulmonic valve is poorly visualized. Great Vessels Aortic root is normal size. Pericardium No significant pericardial effusion noted Conclusion 1. Normal left ventricular size, preserved left ventricular systolic function, visually estimated ejection fraction 55% with no regional wall motion abnormality, diastolic parameters are within normal range. 2. Mild mitral and tricuspid regurgitation. 3. No significant pericardial effusion noted. Electronically signed by : Luther Boss, 08/02/2020 18:10:02
--- NOTE | 2020-08-02 16:22 | MM_ITS ---
PROCEDURE: MM DIG SCREENING MAMM BI W/CAD Digital Breast Tomosynthesis Included CLINICAL INDICATION: Routine Screening Mammogram There is no personal or family history of breast cancer. The patient has bilateral breast implants. COMPARISON: MG DMID DIG MAMM-IMPLANT DIAGNOSTIC from 11/05/2012 MG DMSI DIG MAMM-SCREEN IMPLANT from 12/23/2014 TECHNIQUE: Standard CC and MLO images and 3D Tomosynthesis was obtained. R2 CAD reviewed. FINDINGS: Moderate diffuse fibroglandular densities are seen in the [place] breast tissue around both implants. The implants are intact with no evidence of leakage. Chivo images are helpful and I see no suspicious lesion in either breast. There are no suspicious microcalcifications. IMPRESSION: Stable exam with no suspicious lesions seen BI-RAD Category: 2 Benign Finding(s) FOLLOW-UP: 1YR 1 Year Follow-up (A letter has been sent to the patient regarding results of the study.) Dictated by: Dr. Cody Galicia MD 08/04/2020 10:19 Dr. Cody Galicia MD in [place] 08/04/2020 10:19
== END ==
PROVIDERS: PCP Family Medicine; Visit Provider Internal Medicine Cardiovascular Disease
DX: Z12.31 Encounter for screening mammogram for malignant neoplasm of breast (principal); I42.9 Cardiomyopathy, unspecified; I25.10 Atherosclerotic heart disease of native coronary artery without angina pectoris; E78.5 Hyperlipidemia, unspecified; I10 Essential (primary) hypertension; F17.200 Nicotine dependence, unspecified, uncomplicated; Z95.5 Presence of coronary angioplasty implant and graft
CPT/HCPCS: 77063; 77067; 93306

== ENCOUNTER 2020-11-07 20:14 | Observation (INO) | payer OTHER, SELFPAY ==
[2020-11-07] VITALS (10 sets, daily range): BP systolic 90–151; BP diastolic 56–86; PULSE 66–90; RESP 12–22; TEMP 37.1; O2SAT 95–99; BMI 22.6
--- NOTE | 2020-11-07 | ECG_ITS ---
APPROVED REPORT Exam: Resting ECG HR:85 bpm ECG Measurements Heart Rate 85 AXES MO 144 P 54 QRSd 78 QRS 19 QT 358 T 67 QTc 426 Conclusion Normal sinus rhythm Normal ECG Electronically signed by : Alex Zuniga, 11/08/2020 13:15:51
--- NOTE | 2020-11-07 20:16 | XR_ITS ---
PROCEDURE: XR CHEST PORTABLE CLINICAL HISTORY: Chest Pain COMPARISON: CR CXR1 CHEST-PORTABLE from 05/14/2015 CR CXR CHEST(2 VIEWS-NOT PORTABLE) from 04/14/2017 CR CXR1VP XR chest portable from 08/12/2018 FINDINGS: The cardiomediastinal silhouette and pulmonary vascularity are within normal limits. The lungs are clear without infiltrates, suspicious nodules, or pleural effusions. Bilateral breast implants are present with resultant increased attenuation in the lower lobes. No acute bony findings. IMPRESSION: No acute findings. Dictated by: Clifton Carrero MD 11/08/2020 05:22 Clifton Carrero MD in [place] 11/08/2020 05:22
--- NOTE | 2020-11-07 20:44 | HMH.EDCP ---
ED Disposition Clinical Impression: Unstable angina pectoris, Smoker CAD (coronary artery disease) Qualifiers: Coronary Disease-Associated Artery/Lesion type: [place] artery [place] vs. transplanted heart: [place] heart Associated angina: with unstable angina Qualified Code(s): I25.110 - Atherosclerotic heart disease of [place] coronary artery with unstable angina pectoris Disposition: Admitted as Observation Condition on Discharge: Good Referrals: Alex Pham MD [Primary Care Provider] - - Critical Care Critical Care Time: No Attestation: On 11/07/20, the high probability of a clinically significant, sudden or life threatening deterioration of the following system(s) required my full and direct attention, intervention and personal management. The time I documented below is in addition to time spent performing reported procedures but includes the following listed in this critical care notation. Medical Decision Making - Medical Records Medical records reviewed: Yes: I reviewed the patient's medical records. - Blake Inquiry Pt receiving controlled substance: No Vital Signs: 11/07/20 20:20 11/07/20 20:30 11/07/20 21:00 Temperature 98.7 F Temperature Source Oral Pulse Rate 84 Pulse Rate [Right Brachial] 87 Respiratory Rate 22 12 Blood Pressure 122/82 Blood Pressure [Right Arm] 151/81 H Blood Pressure Mean 88 Blood Pressure Mean [Right Arm] 104 Blood Pressure Source [Right Arm] Automatic Cuff 02 Sat by Pulse Oximetry 99 98 Oxygen Delivery Method Room Air 11/07/20 21:30 11/07/20 22:01 Temperature Temperature Source Pulse Rate 69 72 Pulse Rate [Right Brachial] Respiratory Rate 16 17 Blood Pressure 125/86 124/72 Blood Pressure [Right Arm] Blood Pressure Mean 92 Blood Pressure Mean [Right Arm] Blood Pressure Source [Right Arm] 02 Sat by Pulse Oximetry 98 97 Oxygen Delivery Method - Lab Data Lab results reviewed: Yes: I reviewed the patient's lab results. Lab Results 11/07/20 20:15: WBC 6.0, RBC 4.77, Hgb 15.0, Hct 46.6, MCV 97.7, MCH 31.5 H, MCHC 32.3, RDW 15.8, Plt Count 355, MPV 7.5, Neut % (Auto) 60.4, Lymph % (Auto) 30.3, [place] % (Auto) 8.4, Eos % (Auto) 0.4, Baso % (Auto) 0.5, Neut # (Auto) 3.6, Lymph # (Auto) 1.8, [place] # (Auto) 0.5, Eos # (Auto) 0.0, Baso # (Auto) 0.0, ESR 17 11/07/20 20:15: Sodium 141, Potassium 3.4 L, Chloride 107, Carbon Dioxide 22, Anion Gap 15.4 H, BUN 3 L, Creatinine 0.60, Estimated Creat Clear 114, Estimated GFR 106, Est GFR ( Amer) 129, Glucose 111 H, Calcium 9.4, Troponin I < 0.01, C-Reactive Protein 4.4 H, Procalcitonin 0.047 Result diagrams: 11/07/20 20:15 11/07/20 20:15 Orders (Tests/Meds): ED MEDICATIONS Generic Name Dose Route Start Last Admin Trade Name Freq PRN Reason Stop Dose Admin Sodium Chloride 1,000 mls @ 999 mls/hr 11/07/20 20:30 11/07/20 20:45 Sod Chlor 0.9% 1000ml Bag IV 11/07/20 21:30 999 mls/hr .Q1H1M LOIS Administration Discontinued Medications Generic Name Dose Route Start Last Admin Trade Name Freq PRN Reason Stop Dose Admin Aspirin 243 mg 11/07/20 20:42 11/07/20 20:45 Aspirin 81mg Chewable Tablet PO 11/07/20 20:43 243 mg ONCE ONE Administration Nitroglycerin 0.4 mg 11/07/20 21:27 11/07/20 21:31 Nitroglycerin 0.4mg Sl Tablet SL 11/07/20 21:28 1 tab ONCE ONE Administration Nitroglycerin 1 gm 11/07/20 21:46 11/07/20 21:56 Nitroglycerin 1 Gm Ointment TD 11/07/20 21:47 1 gm ONCE ONE Administration ORDERS Category Date Time Status XR chest portable Stat Exams 11/07/20 20:16 Taken Covid-19 Nasal PCR ([facility]) Routine Lab 11/07/20 21:50 Received Troponin I Q3H Lab 11/07/20 23:30 Ordered Troponin I Q3H Lab 11/08/20 02:30 Ordered - Radiology Data #1 Image(s): Chest Image Reviewed: Yes I reviewed the patient's radiology image Preliminary Findings: Normal/NAD - ECG Data Tracing #1 Normal Sinus Rhythm: Yes Ischemic c
[2020-11-07 21:03] LABS: Basophils % 0.5 % (0.1-2.0); Eosinophils % 0.4 % (0.1-12.0); Hematocrit 46.6 % (37.0-47.0); Lymphocytes # 1.8 K/mm3 (0.7-4.5); Lymphocytes % 30.3 % (10-50); Mean Corpuscular HGB Conc 32.3 g/dL (31.8-35.4); Mean Corpuscular Hemoglobin 31.5 pg (27.0-31.2); Mean Corpuscular Volume 97.7 fl (81-99); Mean Platelet Volume 7.5 fl (7.4-10.4); Monocytes # 0.5 K/mm3 (0.1-1.0); Monocytes % 8.4 % (1.7-9.3); Neutrophils # 3.6 K/mm3 (1.8-7.8); Neutrophils % 60.4 % (37.0-80.0); Platelet Count 355 K/mm3 (142-424); Red Blood Count 4.77 M/mm3 (4.20-5.40); Red Cell Distribution Width 15.8 % (11.5-17.5)
[2020-11-07 21:09] LABS: Anion Gap 15.4 mEq/L (5-15); Blood Urea Nitrogen 3 mg/dl (7-17); Calcium 9.4 mg/dl (8.4-10.2); Carbon Dioxide 22 mmol/L (22.0-30.0); Chloride 107 mmol/L (98-107); Creatinine Clearance Estimated 114 mL/min (50-200); Estimated Glomerular Filt Rate 106 ml/min (>60); GFR (African American) 129 ML/MIN (>60); Glucose 111 mg/dl (74-100); Potassium 3.4 mmoL/L (3.5-5.1); Sodium 141 mmol/L (136-145)
[2020-11-07 21:14] LABS: C-Reactive Protein 4.4 mg/L (0-4)
[2020-11-07 21:28] LABS: Procalcitonin 0.047 ng/mL (0.0-2.0)
[2020-11-07 21:33] LABS: Troponin I < 0.01 ng/ml (0.00-0.034)
[2020-11-07 21:58] LABS: Erythrocyte Sedimentation Rate 17 mm/hr (0-20)
[2020-11-07 23:50] LABS: Troponin I 0.02 ng/ml (0.00-0.034)
[2020-11-08 00:09] VITALS: BP 115/57; PULSE 70; RESP 18; TEMP 36.7; O2SAT 94; BMI 22.5
--- NOTE | 2020-11-08 00:09 | PC.NURSE ---
pt on floor via wheel chair at 2355. K.M
[2020-11-08 03:53] LABS: Troponin I < 0.01 ng/ml (0.00-0.034)
[2020-11-08 04:00] VITALS: BP 105/54; PULSE 60; PULSE 68; RESP 16; TEMP 36.9; O2SAT 96
[2020-11-08 04:10] VITALS: O2SAT 94
--- NOTE | 2020-11-08 04:12 | PC.NURSE ---
She reports a hx of a ID and 2 cardiac stents. She is tearful. Reports that her committed suicide the day before her admission. She states that she ate a couple bites of pizza and that her chest started to hurt. She denies chest pain at this time and has not reported any since admission to the floor. She has nitro on the left side of her chest. Her son is in the room with her. They have stayed awake all night talking. NSR on telemetry. She is currently NPO for a cardiology consult.
--- NOTE | 2020-11-08 07:04 | HMH.HP ---
*Admission Date: 11/08/20 *Chief complaint: Chest pain *History of present illness: 50-year-old female with history of coronary artery disease presented to the emergency department with intermittent episodes of anginal type chest pain lasting approximately 10 minutes that have been occurring for the last 10 days and have been exacerbated by the recent of her . Patient was tearful in the ER. Patient has a history of IA and has a right coronary and mid LAD stent. Last heart catheterization was in 2018 which showed patent vessels. Patient had echocardiogram in July which was unremarkable. Patient was admitted to rule out IA and for cardiology consultation [facility] History I have reviewed the patient's past medical history: Yes Medical History: Reports:: Asthma, Atherosclerotic Heart Disease, Coronary Artery Disease, Gastroesophageal Reflux Disease(GERD), Hyperlipidemia, Hypertension, Myocardial Infarction Denies:: Cancer, Diabetes Mellitus Type 1, Diabetes Mellitus Type 2, MRSA *Have you ever received a pneumonia vaccine?: No *Have you received a flu vaccine this season?: Yes Other Surgeries: Yes: Cardiac Catheterization, Cholecystectomy, Coronary Stent, Dilation and Curettage, Tubal Ligation, Other (Breast augmentation, hemorrhoid s.) Amputation: No Fractures: No - *Social History Last grade of school completed: High school graduate Smoking Status: Current every day smoker # Packs/Day (cigarettes): 1 Alcohol Intake: never Alcohol Intake Frequency:: holidays/special occasions only Substance Use Type: denies use *Occupational Status:: employed Housing: house Household Members: spouse *Travel in the last 8 weeks: None Family Hx:: Hyperlipidemia, Hypertension Review of Systems - Constitutional Denies body ache(s), Denies chills, Denies lack of energy - Eyes Denies change in vision - ENT Denies change in voice - *Cardiovascular Reports chest pain, Reports chest pain at rest - *Respiratory Denies change in phlegm color, Denies chest congestion, Denies cough - *Gastrointestinal Denies belching, Denies bloating, Denies heartburn - *Genitourinary Denies painful urination - *Musculoskeletal Denies abnormal walking - Integumentary/Breasts Denies hair loss, Denies bleeding lesions - *Neurologic Denies headache(s), Denies seizure-like activity - Psychiatric Reports abnormal sleep pattern, Reports change in appetite, Reports depression Meds Home Medications Medication Instructions Recorded Confirmed Type aspirin 81 mg tablet,delayed 81 mg PO DAILY 04/15/18 11/08/20 History release omeprazole 20 mg capsule,delayed 20 mg PO DAILY 04/15/18 11/08/20 History release nitroglycerin 0.4 mg sublingual 0.4 mg SUBLINGUAL Q5-15M PRN #30 04/16/18 11/08/20 Rx tablet tab Rosuvastatin Calcium 20 mg PO DAILY 11/07/20 11/08/20 History Allergies Allergy/AdvReac Type Severity Reaction Status Date / Time ibuprofen [IBUPROFEN] Allergy Intermediate I-RASH Verified 11/08/20 00:03 Exam Vital signs and Labs for Last 24 Hours: Temp Pulse Resp BP Pulse Ox 98.5 F 68 16 105/54 L 94 L 11/08/20 04:00 11/08/20 04:00 11/08/20 04:00 11/08/20 04:00 11/08/20 04:10 Laboratory Results - last 24 hr 11/07/20 20:15: WBC 6.0, RBC 4.77, Hgb 15.0, Hct 46.6, MCV 97.7, MCH 31.5 H, MCHC 32.3, RDW 15.8, Plt Count 355, MPV 7.5, Neut % (Auto) 60.4, Lymph % (Auto) 30.3, [place] % (Auto) 8.4, Eos % (Auto) 0.4, Baso % (Auto) 0.5, Neut # (Auto) 3.6, Lymph # (Auto) 1.8, [place] # (Auto) 0.5, Eos # (Auto) 0.0, Baso # (Auto) 0.0, ESR 17 11/07/20 20:15: Sodium 141, Potassium 3.4 L, Chloride 107, Carbon Dioxide 22, Anion Gap 15.4 H, BUN 3 L, Creatinine 0.60, Estimated Creat Clear 114, Estimated GFR 106, Est GFR ( Amer) 129, Glucose 111 H, Calcium 9.4, Troponin I < 0.01, C-Reactive Protein 4.4 H, Procalcitonin 0.047 11/07/20 23:25: Troponin I 0.02 11/08/20 02:39: Troponin I < 0.01 I & O for Last 24 hours: Intake &
[2020-11-08 07:32] VITALS: BP 103/60; PULSE 88; RESP 18; TEMP 36.7; O2SAT 96
[2020-11-08 07:50] LABS: Basophils % 0.5 % (0.1-2.0); Eosinophils % 0.6 % (0.1-12.0); Hematocrit 39.6 % (37.0-47.0); Lymphocytes # 1.4 K/mm3 (0.7-4.5); Lymphocytes % 24.1 % (10-50); Mean Corpuscular HGB Conc 32.2 g/dL (31.8-35.4); Mean Corpuscular Hemoglobin 31.6 pg (27.0-31.2); Mean Corpuscular Volume 98.1 fl (81-99); Mean Platelet Volume 7.7 fl (7.4-10.4); Monocytes # 0.4 K/mm3 (0.1-1.0); Monocytes % 7.3 % (1.7-9.3); Neutrophils # 3.9 K/mm3 (1.8-7.8); Neutrophils % 67.5 % (37.0-80.0); Platelet Count 293 K/mm3 (142-424); Red Blood Count 4.03 M/mm3 (4.20-5.40); Red Cell Distribution Width 15.8 % (11.5-17.5); White Blood Count 5.7 K/mm3 (4.8-10.8)
[2020-11-08 07:58] LABS: Chloride 113 mmol/L (98-107); Potassium 3.7 mmoL/L (3.5-5.1); Sodium 140 mmol/L (136-145)
[2020-11-08 08:00] LABS: Blood Urea Nitrogen 6 mg/dl (7-17); Creatinine Clearance Estimated 114 mL/min (50-200); Estimated Glomerular Filt Rate 106 ml/min (>60); GFR (African American) 129 ML/MIN (>60)
[2020-11-08 08:01] LABS: Anion Gap 6.7 mEq/L (5-15); Calcium 8.5 mg/dl (8.4-10.2); Carbon Dioxide 24 mmol/L (22.0-30.0); Chol/HDL Ratio 2.2 (1-3.5); Cholesterol 101 mg/dl (140-200); Glucose 94 mg/dl (74-100); HDL Cholesterol 46 mg/dl (40-60); Magnesium 1.9 mg/dl (1.6-2.3); Triglycerides 94 mg/dl (30-150); VLDL Cholesterol 19 mg/dL (0-40)
[2020-11-08 08:10] LABS: Hemoglobin 12.8 g/dL (12.2-16.2)
[2020-11-08 08:12] LABS: Direct LDL Cholesterol 33.69 mg/dL (100-129)
--- NOTE | 2020-11-08 09:03 | P.CONPHA_ITS ---
[facility] Pharmacy VTE Monitoring - Patient Demographics Admission date: 11/08/20 Report Date: 11/08/20 Time: 09:03 Allergies/Adverse Reactions: Patient Allergies ibuprofen [IBUPROFEN] Allergy (Intermediate, Verified 11/08/20 00:03) I-RASH Height: 1.68 m Weight: 63.503 kg Patient Problems: Current Active Problems Unstable angina pectoris (Acute) CAD (coronary artery disease) (Acute) Smoker (Chronic) Hyperlipidemia (Chronic) Stented coronary artery (Chronic) - VTE Risk Labs: VTE Related Lab Results Hgb 12.8 g/dL (12.2-16.2) D 11/08/20 07:40 Hct 39.6 % (37.0-47.0) 11/08/20 07:40 Plt Count 293 K/mm3 (142-424) 11/08/20 07:40 BUN 6 mg/dl (7-17) L D 11/08/20 07:40 Creatinine 0.60 mg/dl (0.52-1.04) 11/08/20 07:40 Estimated Creat Clear 114 mL/min (50-200) 11/08/20 07:40 Was VTE Risk Assessment Performed: No VTE Score: 2 VTE Risk Level: Very Low Risk - Prophylaxis Types of VTE Prophylaxis: TEDS Knee High (SADA HOSE ORDERED)
--- NOTE | 2020-11-08 10:01 | HMH.CNCARD ---
History of Present Illness Consult date: 11/08/20 Requesting physician: Alex Pham Consult reason: chest pain Chief complaint: chest pain History of present illness: This is a 50-year-old white female with a known history of PA and coronary artery disease that presented to the hospital with complaints of chest pain for approximately the last 10 days. She states that she has been having a pressure sensation in the substernal aspect of her chest that lasts approximately 10 minutes. She states that this does not radiate and there are no associated symptoms. She states that this is mild to moderate in intensity. Her did pass away on Friday and since then her chest pain has been exacerbated. She states for the last 10 days she has been under a great deal of stress and only has the chest pain when she is feeling very stressed out. She was started on an antianxiety medication but she has not been taking this medicine. The patient gets very tearful when you are speaking with her and her 's comes up. She states that her chest pain has been a lot better since being in the hospital because she is not as anxious and stressed right now. She states the only times that she has felt the chest pain since being in the hospital is when she talks about her 's . She did have an echocardiogram which shows an ejection fraction of 50 to 55% with mild MR. This is a preliminary reading. Her troponins have been negative and she has ruled out for an PA. She denies any fever, chills, nausea, vomiting, diarrhea, PND orthopnea. [facility] History I have reviewed the patient's past medical history: Yes Medical History: Reports:: Asthma, Atherosclerotic Heart Disease, Coronary Artery Disease, Gastroesophageal Reflux Disease(GERD), Hyperlipidemia, Hypertension, Myocardial Infarction Denies:: Cancer, Diabetes Mellitus Type 1, Diabetes Mellitus Type 2, MRSA *Have you ever received a pneumonia vaccine?: No *Have you received a flu vaccine this season?: Yes Other Surgeries: Yes: Cardiac Catheterization, Cholecystectomy, Coronary Stent, Dilation and Curettage, Tubal Ligation, Other (Breast augmentation, hemorrhoid s.) Amputation: No Fractures: No - *Social History Last grade of school completed: High school graduate Smoking Status: Current every day smoker # Packs/Day (cigarettes): 1 Alcohol Intake: never Alcohol Intake Frequency:: holidays/special occasions only Substance Use Type: denies use *Occupational Status:: employed Housing: house Household Members: spouse *Travel in the last 8 weeks: None Family Hx:: Hyperlipidemia, Hypertension Meds Home Medications Medication Instructions Recorded Confirmed Type aspirin 81 mg tablet,delayed 81 mg PO DAILY 04/15/18 11/08/20 History release Rosuvastatin Calcium 20 mg PO HS 11/07/20 11/08/20 History Nitroglycerin [Nitrostat 0.4mg SL 0.4 mg SL Q5MINP PRN 11/08/20 11/08/20 History Tablet] Omeprazole [Omeprazole 20mg Tab] 20 mg PO DAILY 11/08/20 11/08/20 History Allergies Allergy/AdvReac Type Severity Reaction Status Date / Time ibuprofen [IBUPROFEN] Allergy Intermediate I-RASH Verified 11/08/20 00:03 Exam Vital signs and Labs for Last 24 Hours: Temp Pulse Resp BP Pulse Ox 98.0 F 88 18 103/60 L 96 11/08/20 07:32 11/08/20 07:32 11/08/20 07:32 11/08/20 07:32 11/08/20 07:32 Laboratory Results - last 24 hr 11/07/20 20:15: WBC 6.0, RBC 4.77, Hgb 15.0, Hct 46.6, MCV 97.7, MCH 31.5 H, MCHC 32.3, RDW 15.8, Plt Count 355, MPV 7.5, Neut % (Auto) 60.4, Lymph % (Auto) 30.3, [place] % (Auto) 8.4, Eos % (Auto) 0.4, Baso % (Auto) 0.5, Neut # (Auto) 3.6, Lymph # (Auto) 1.8, [place] # (Auto) 0.5, Eos # (Auto) 0.0, Baso # (Auto) 0.0, ESR 17 11/07/20 20:15: Sodium 141, Potassium 3.4 L, Chloride 107, Carbon Dioxide 22, Anion Gap 15.4 H, BUN 3 L, Creatinine 0.60, Estimated Creat Clear 114, Estimated GFR 106, Est GFR ( Amer) 129, Glucose 111 H, Calcium 9.4, Troponin I < 0.01, C-React
--- NOTE | 2020-11-08 10:50 | HMH.PHAINT ---
DISCHARGE COUNSELING COMPLETED ON PATIENT. ONE NEW PRESCRIPTION FOR RANEXA THAT WAS SENT TO [facility] IN [place]. PATIENT IS TO CONTINUE ALL OTHER HOME MEDICATIONS. PATIENT VERBALIZED UNDERSTANDING AND HAD NO QUESTIONS AT THIS TIME. -CANDACE ALMONTE, MOD
--- NOTE | 2020-11-11 07:23 | P.DS_ITS ---
General - General Admission date:: 11/07/20 Discharge date: 11/08/20 HPI HPI: 50-year-old female with history of coronary artery disease presented to the emergency department with intermittent episodes of anginal type chest pain lasting approximately 10 minutes that have been occurring for the last 10 days and have been exacerbated by the recent of her . Patient was tearful in the ER. Patient has a history of WA and has a right coronary and mid LAD stent. Last heart catheterization was in 2018 which showed patent vessels. Patient had echocardiogram in July which was unremarkable. Patient was admitted to rule out WA and for cardiology consultation Hospital Course Hospital Course: Patient was admitted and ruled out for WA due to her cardiac history cardiology service was consulted. No interventions were planned. Ranexa was added to the patient's regimen. She was discharged home Objective Vital signs: Temp Pulse Resp BP Pulse Ox 98.0 F 88 18 103/60 L 96 11/08/20 07:32 11/08/20 07:32 11/08/20 07:32 11/08/20 07:32 11/08/20 07:32 DS: Diagnosis - Discharge Diagnosis (1) Angina pectoris Status: Acute (2) CAD (coronary artery disease) Status: Acute (3) Hyperlipidemia Status: Chronic (4) Stented coronary artery Status: Chronic (5) Anxiety Status: Acute (6) Stress Status: Acute (7) Grief Status: Acute Discharge Plan - Patient Discharge Instructions ACTIVITY: Continue current activity DIET: continue same diet Patient Instructions: Angina, DI for Angina - Follow up Plan Disposition: Home, Self-Senior Living Medications: Home Medications Medication Instructions Recorded Confirmed Type aspirin 81 mg tablet,delayed 81 mg PO DAILY 04/15/18 11/08/20 History release Rosuvastatin Calcium 20 mg PO HS 11/07/20 11/08/20 History Nitroglycerin [Nitrostat 0.4mg SL 0.4 mg SL Q5MINP PRN 11/08/20 11/08/20 History Tablet] Omeprazole [Omeprazole 20mg Tab] 20 mg PO DAILY 11/08/20 11/08/20 History ranolazine 500 mg tablet,extended 500 mg PO BID #60 tab 11/09/20 Rx release,12 hr Prescriptions/Medication Reconciliation: Continued aspirin 81 mg tablet,delayed release 81 mg PO DAILY Rosuvastatin Calcium 20 mg PO HS Nitroglycerin [Nitrostat 0.4mg SL Tablet] 0.4 mg SL Q5MINP PRN PRN Reason: Chest Pain Omeprazole [Omeprazole 20mg Tab] 20 mg PO DAILY No Action ranolazine 500 mg tablet,extended release,12 hr 500 mg PO BID #60 tab - Problem Reconciliation Problems Reviewed?: Yes
== END 2020-11-08 11:07 | disposition home or self-care (01) ==
LOC: ER 22:46 → 2ND 23:54
PROVIDERS: Admitting Provider Family Medicine; Emergency Provider Emergency Medicine; PCP Family Medicine; Visit Provider Family Medicine
DX: I25.110 Atherosclerotic heart disease of native coronary artery with unstable angina pectoris (principal); I25.2 Old myocardial infarction; Z95.5 Presence of coronary angioplasty implant and graft; Z82.49 Family history of ischemic heart disease and other diseases of the circulatory system; Z79.82 Long term (current) use of aspirin; F17.210 Nicotine dependence, cigarettes, uncomplicated; E78.5 Hyperlipidemia, unspecified; K21.9 Gastro-esophageal reflux disease without esophagitis; I10 Essential (primary) hypertension; I34.0 Nonrheumatic mitral (valve) insufficiency; F41.9 Anxiety disorder, unspecified; F43.21 Adjustment disorder with depressed mood; Z71.6 Tobacco abuse counseling
CPT/HCPCS: 36415; 71045; 80048; 80061; 83735; 84145; 84484; 85025; 85651; 86140; 93005; 93306; 96365; 99284; G0378; U0003

== ENCOUNTER → 2020-12-04 09:07 | Outpatient (CLI) | payer OTHER, SELFPAY | PROVIDERS: PCP Family Medicine; Visit Provider Nurse Practitioner Family | DX: Z20.822 Contact with and (suspected) exposure to COVID-19 (principal) | CPT/HCPCS: U0003 ==

== ENCOUNTER → 2021-01-29 07:26 | Outpatient (CLI) | payer OTHER, SELFPAY ==
--- NOTE | 2021-01-29 07:28 | NM_ITS ---
APPROVED REPORT Exam: Nuclear Stress Test Indication: Chest pain, CAD, Hx of [place], High cholesterol, Tobacco use, Family history Patient Location: Outpatient Stress Tech: Erica Christian HI Tech:Bobbi Chambers, ARRT, RT (R)(N) Ht: 5 ft 5 in Wt: 134 lbs Bra Size: 36C HR: 58 bpm BP: 118/85 mmHg BSA: 1.67 m2 BMI: 22.2 History: Chest pain, CAD, Hx of [place], High cholesterol, Tobacco use, Family history Procedure: Patient exercised on Eran protocol 9:51 minutes and sec, resting heart rate 58 bpm, resting blood pressure 118/85 mmHg, with exercise maximum heart rate achived was 162 bpm which is 105 % of the maximum predicted heart rate and blood pressure was 140/92 mmHg. Test was stopped due to SOA. Patient denied any complaint of chest pain. Patient has good exercise capacity, achieved 12.8 METs of workload on treadmill, the blood pressure response to exercise was Adequate. Electrocardiogram Resting electrocardiogram shows sinus rhythm, with exercise there is less than 1.[address] segment depression noted from the baseline EKG. The EKG portion of the exercise Myoview is negative for ischemia. Cardiac Stress and Resting SPECT Images: Cardiac Stress and Resting SPECT images were obtained using technetium 99m Myoview 30.9 mCi stress and 10.87 mCi at rest. Gated SPECT for analysis of segmental wall motion and calculation of the ejection fraction also done, prone images were also obtained. Cardiac stress and resting SPECT images show uniform myocardial activity without segmental perfusion abnormality, computer derived ejection fraction is 49% with no regional wall motion abnormality, right ventricle is normal size and contractility. Conclusion: 1. The EKG portion of the exercise Myoview is negative for ischemia, patient has good exercise capacity achieved 12.8 mets of workload on treadmill, the blood pressure response to exercise was adequate, there was no exercise-induced chest discomfort. 2. No scintigraphic evidence of reversible ischemia seen at this level of exercise, computer derived ejection fraction is 49% with no regional wall motion abnormality, right ventricle is normal size and contractility. 3. Normal exercise Myoview study. Electronically signed by : Luther Boss, 01/29/2021 18:53:12
--- NOTE | 2021-01-29 09:26 | HMH.ITSHM ---
Current Home Medications as stated by this patient Ritu Rivas or brand representative. []ASA ROSUVASTATIN OMEPRAZOLE NITRO
--- NOTE | 2021-01-29 10:19 | CA_ITS ---
APPROVED REPORT Exam: Exercise Treadmill Technologist: Erica Christian, Ht: 5 ft 5 in Wt: 132 lbs BSA: 1.66 m2 HR: 58 bpm BP: 118/85 mmHg Medical History Medications: Omeprazole,,,,, Aspirin,,,,, Nitroglycerin,,,,, RoSUVASTATIN,,,,, Stress Test Details Test: Eran HR Resting HR: 76 bpm Max Heart Rate (APMHR): 171.241018 bpm Max HR Achieved: 162 bpm Target HR (85% APMHR): 145.518154 bpm % of APMHR: 94.74 Recovery HR: 93 bpm BP Resting BP: 116/77 mmHg Max BP: 156/78 mmHg Recovery BP: 126.0/78.0 mmHg ECG Clinical Exercise duration: 09:51 min Highest Stage Achieved: Exercise capacity: 12.8 METs Stress ECG Conclusion Symptoms: SOA. No CP. test stopped due to SOA. Arrythmias/Ectopy: PVC's noted. ST-T Changes: <1.5mm ST segment changes. Test Summary Stage 3 02:00 14.0 3.4 142 . . . . REST . . . . . . . Standing REST 12:47 0.0 1.2 76 . 116/ 77 . . Stage 1 01:00 10.0 1.7 97 . . . . Stage 1 02:00 10.0 1.7 113 . . . . Stage 1 03:00 10.0 1.7 114 . 112/ 82 . . Stage 2 01:00 12.0 2.5 124 . . . . Stage 2 02:00 12.0 2.5 128 . . . . Stage 2 03:00 12.0 2.5 132 . 128/ 90 . . Stage 3 01:00 14.0 3.4 139 . . . . Stage 3 02:00 14.0 3.4 142 . . . . Stage 3 03:00 14.0 3.4 150 . 140/ 92 . . Stage 4 . . . . . . . Cardiolite injected Stage 4 00:51 16.0 4.2 160 . . . Stop exercise at 09:51 RECOVERY 01:00 0.0 0.0 136 . . . . RECOVERY 02:00 0.0 0.0 112 . . . . RECOVERY 03:00 0.0 0.0 102 . 156/ 78 . . RECOVERY 04:00 0.0 0.0 98 . 131/ 80 . . RECOVERY 05:00 0.0 0.0 93 . 126/ 78 . . RECOVERY 05:13 0.0 0.0 99 . 126/ 78 . . Electronically signed by : Luther Boss, 01/29/2021 18:48:17
== END ==
PROVIDERS: PCP Family Medicine; Visit Provider Nurse Practitioner Family
DX: R07.89 Other chest pain (principal); I25.110 Atherosclerotic heart disease of native coronary artery with unstable angina pectoris; I25.5 Ischemic cardiomyopathy; E78.2 Mixed hyperlipidemia; I10 Essential (primary) hypertension; Z95.5 Presence of coronary angioplasty implant and graft
CPT/HCPCS: 78452; 93017; A9502

== ENCOUNTER → 2021-08-14 09:35 | Outpatient (CLI) | payer OTHER, SELFPAY ==
[2021-08-14 10:55] LABS: Alanine Aminotransferase 21 U/L (12-78); Albumin Level 4.9 g/dl (3.5-5.0); Alkaline Phosphatase 87 U/L (38-126); Aspartate Amino Transferase 31 U/L (14-36); Bilirubin,Direct 0.1 mg/dl (0.0-0.4); Bilirubin,Indirect 0.4 mg/dL (0.0-0.9); Bilirubin,Total 0.5 mg/dl (0.2-1.3); Bilirubin,Unconjugated 0.4 mg/dL (0.0-1.1); Chol/HDL Ratio 4.4 (1-3.5); Cholesterol 216 mg/dl (140-200); HDL Cholesterol 49 mg/dl (40-60); Total Protein,Serum 7.3 g/dl (6.3-8.2); Triglycerides 223 mg/dl (30-150); VLDL Cholesterol 45 mg/dL (0-40)
[2021-08-14 11:07] LABS: Direct LDL Cholesterol 136.35 mg/dL (100-129)
== END ==
PROVIDERS: PCP Family Medicine; Visit Provider Urology
DX: I25.110 Atherosclerotic heart disease of native coronary artery with unstable angina pectoris (principal); I25.5 Ischemic cardiomyopathy; I10 Essential (primary) hypertension; E78.2 Mixed hyperlipidemia; F17.200 Nicotine dependence, unspecified, uncomplicated; Z95.5 Presence of coronary angioplasty implant and graft
CPT/HCPCS: 36415; 80061; 80076

== ENCOUNTER → 2021-08-29 16:27 | Outpatient (CLI) | payer OTHER, SELFPAY | PROVIDERS: PCP Family Medicine; Visit Provider Nurse Practitioner | DX: U07.1 COVID-19 (principal) | CPT/HCPCS: C9803; U0003; U0005 ==

== ENCOUNTER 2021-11-11 11:32 | Emergency (ER) | payer OTHER, SELFPAY ==
[2021-11-11 12:04] VITALS: BP 124/79; PULSE 85; RESP 14; TEMP 36.9; O2SAT 100; BMI 22.2
--- NOTE | 2021-11-11 12:24 | HMH.EDUTC ---
[facility] [place] Clinical Impression: Cellulitis of hand, Need for Tdap vaccination Cat scratch of hand Qualifiers: Encounter type: initial encounter Laterality: unspecified laterality Qualified Code(s): S60.519A - Abrasion of unspecified hand, initial encounter Disposition: Home, Self-Care Condition on Discharge: Good Instructions: Cellulitis Additional Instructions: Keep the affected area clean and dry. Follow up with your regular doctor. Take the antibiotics as directed and apply the topical antibiotics as directed. Soak the affected hand in warm wet epsom salt water three or four times per day. GO TO THE ER FOR ANY WORSENING SYMPTOMS Prescriptions: Amoxicillin/Potassium Clav [Amox-Clav 875-125 mg Tablet] 1 tab PO BID #20 tab Transmission Status: Received by [facility] #[id number] Mupirocin [Bactroban 2% Ointment 22gm tube] 1 applicatio TP TID 7 Days #1 gm Transmission Status: Received by [facility] #[id number] Referrals: Iman Pena APRN [Primary Care Provider] - Forms: Work/School Release Time of Disposition: 12:48 Medical Decision Making - Medical Records Medical records reviewed: No: I reviewed the patient's medical records. - Blake Inquiry Pt receiving controlled substance: No Vital Signs: 11/11/21 12:04 11/11/21 13:04 Temperature 98.4 F 98.4 F Temperature Source Oral Pulse Rate 85 Pulse Rate [Left] 85 Respiratory Rate 14 14 Blood Pressure 124/79 Blood Pressure [Right Arm] 124/79 Blood Pressure Mean [Right Arm] 94 02 Sat by Pulse Oximetry 100 Orders (Tests/Meds): ED MEDICATIONS Discontinued Medications Generic Name Dose Route Start Last Admin Trade Name Freq PRN Reason Stop Dose Admin Ceftriaxone Sodium 1 gm 11/11/21 12:41 11/11/21 12:54 Ceftriaxone 1gm Vial IM 11/11/21 12:42 1 gm ONCE ONE Administration Lidocaine HCl 0 ml 11/11/21 12:41 11/11/21 12:54 Lidocaine 1% 5ml Pf Vial IM 11/11/21 12:42 2 ml ONCE ONE Administration Tetanus/Reduced Diphtheria/Acell Pertussis 0.5 ml 11/11/21 12:41 11/11/21 12:54 Tet/Diphth/Pert-Adult 0.5ml Syringe IM 11/11/21 12:42 0.5 ml .ONCE ONE Administration [facility] [place] - General Stated complaint: left middle finger cat scratch Time Seen by Provider: 11/11/21 12:25 Mode of Arrival: Ambulatory Source of Information: Patient Limitations: No Limitations Description of Symptoms (Recalled from Triage Doc. by RN): pt states she was scratched by a cat under her L middle finger on friday night. pts finger is red, swollen and warm. pt states she is unable to bend her finger. HEENT Symptoms (Recalled from RN notes): No Resp Symptoms (Recalled from RN notes): No Skin Symptoms (Recalled from RN notes): Yes MS Symptoms (Recalled from RN notes): No Functional Status (Recalled from RN notes): wnl - History of Present Illness Provider Complaint: She states that 4 days ago her inside house cat accidentily scratched her on her left middle finger. The wound seemed very superficial to her. But since then, it has became swollen, red and painful. Her tdap immunization is not up to date. - Related Data Home Medications Medication Instructions Recorded Confirmed aspirin 81 mg tablet,delayed 81 mg PO DAILY 04/15/18 08/14/21 release Nitroglycerin [Nitrostat 0.4mg SL 0.4 mg SL Q5MINP PRN 11/08/20 08/14/21 Tablet] Omeprazole [Omeprazole 20mg Tab] 20 mg PO DAILY 11/08/20 08/14/21 Previous Rx's Medication Instructions Recorded rosuvastatin 20 mg tablet 20 mg PO DAILY #30 tab 08/14/21 Amoxicillin/Potassium Clav 1 tab PO BID #20 tab 11/11/21 [Amox-Clav 875-125 mg Tablet] Mupirocin [Bactroban 2% Ointment 1 applicatio TP TID 7 Days #1 gm 11/11/21 22gm tube] Allergies Allergy/AdvReac Type Severity Reaction Status Date / Time ibuprofen [IBUPROFEN] Allergy Intermediate I-RASH Verified 08/14/21 09:06 - Worker's Comp Is this a Worker's Comp case?: No
[2021-11-11 13:04] VITALS: BP 124/79; PULSE 85; RESP 14; TEMP 36.9
== END 2021-11-11 13:05 | disposition home or self-care (01) ==
PROVIDERS: Emergency Provider Nurse Practitioner Family; PCP Nurse Practitioner Family
DX: S60.519A Abrasion of unspecified hand, initial encounter (principal); R06.02 Shortness of breath; R53.82 Chronic fatigue, unspecified; I10 Essential (primary) hypertension; I25.10 Atherosclerotic heart disease of native coronary artery without angina pectoris; I25.2 Old myocardial infarction; K21.9 Gastro-esophageal reflux disease without esophagitis; E78.5 Hyperlipidemia, unspecified; J45.909 Unspecified asthma, uncomplicated; F17.210 Nicotine dependence, cigarettes, uncomplicated; Z79.899 Other long term (current) drug therapy; Z88.6 Allergy status to analgesic agent; Z82.49 Family history of ischemic heart disease and other diseases of the circulatory system; Z83.438 Family history of other disorder of lipoprotein metabolism and other lipidemia
CPT/HCPCS: 90471; 90715; 96372; J0696

== ENCOUNTER → 2022-08-13 08:44 | Outpatient (CLI) | payer BC, SELFPAY ==
[2022-08-13 09:22] LABS: Basophils # 0.1 K/mm3 (0-0.2); Basophils % 1.2 % (0.1-2.0); Eosinophils # 0.1 K/mm3 (0.0-0.4); Eosinophils % 1.7 % (0.1-12.0); Hematocrit 45.2 % (37.0-47.0); Hemoglobin 14.2 g/dL (12.2-16.2); Lymphocytes # 1.5 K/mm3 (0.7-4.5); Mean Corpuscular HGB Conc 31.4 g/dL (31.8-35.4); Mean Corpuscular Hemoglobin 32.6 pg (27.0-31.2); Mean Corpuscular Volume 103.8 fl (81-99); Mean Platelet Volume 7.8 fl (7.4-10.4); Monocytes # 0.3 K/mm3 (0.1-1.0); Monocytes % 6.5 % (1.7-9.3); Neutrophils # 2.1 K/mm3 (1.8-7.8); Neutrophils % 52.6 % (37.0-80.0); Platelet Count 388 K/mm3 (142-424); Red Blood Count 4.36 M/mm3 (4.20-5.40); Red Cell Distribution Width 13.2 % (11.5-17.5); White Blood Count 3.9 K/mm3 (4.8-10.8)
[2022-08-13 10:20] LABS: Alanine Aminotransferase 11 U/L (12-78); Albumin Level 4.5 g/dl (3.5-5.0); Alkaline Phosphatase 74 U/L (38-126); Anion Gap 8.3 mEq/L (5-15); Aspartate Amino Transferase 22 U/L (14-36); Bilirubin,Direct 0.2 mg/dl (0.0-0.4); Bilirubin,Indirect 0.2 mg/dL (0.0-0.9); Bilirubin,Total 0.4 mg/dl (0.2-1.3); Bilirubin,Unconjugated 0.2 mg/dL (0.0-1.1); Blood Urea Nitrogen 9 mg/dl (7-17); Calcium 9.1 mg/dl (8.4-10.2); Carbon Dioxide 29 mmol/L (22.0-30.0); Chloride 108 mmol/L (98-107); Chol/HDL Ratio 5.9 (1-3.5); Cholesterol 242 mg/dl (140-200); Estimated Glomerular Filt Rate 89 ml/min (>60); GFR (African American) 107 ML/MIN (>60); Glucose 87 mg/dl (74-100); HDL Cholesterol 41 mg/dl (40-60); Potassium 4.3 mmoL/L (3.5-5.1); Sodium 141 mmol/L (136-145); Triglycerides 182 mg/dl (30-150); VLDL Cholesterol 36 mg/dL (0-40)
[2022-08-13 10:31] LABS: Direct LDL Cholesterol 152.08 mg/dL (100-129)
[2022-08-13 10:35] LABS: Free T4 (Free Thyroxine) 0.87 ng/dl (0.78-2.19)
== END ==
PROVIDERS: PCP Nurse Practitioner Family; Visit Provider Nurse Practitioner
DX: R06.00 Dyspnea, unspecified (principal); I25.110 Atherosclerotic heart disease of native coronary artery with unstable angina pectoris; I11.9 Hypertensive heart disease without heart failure; E11.9 Type 2 diabetes mellitus without complications; E78.2 Mixed hyperlipidemia; I63.9 Cerebral infarction, unspecified; F17.200 Nicotine dependence, unspecified, uncomplicated; Z95.5 Presence of coronary angioplasty implant and graft
CPT/HCPCS: 36415; 80048; 80061; 80076; 84439; 84443; 85025

== ENCOUNTER → 2023-06-02 16:25 | Outpatient (CLI) | payer BC, SELFPAY ==
--- NOTE | 2023-06-02 16:25 | MM_ITS ---
PROCEDURE INFORMATION: Exam: MG Bilateral Screening 3D Mammography Exam date and time: 06/02/2023 4:21 PM Age: 52 years old Clinical indication: Screening examination TECHNIQUE: Imaging protocol: Bilateral Screening tomosynthesis and 2D mammography including computer-aided detection (CAD) when performed. COMPARISON: 1. MG MM DIG SCREENING MAMM BI W/CAD 08/02/2020 4:22 PM 2. MG DMSI DIG MAMM-SCREEN IMPLANT 12/23/2014 1:18 PM FINDINGS: MAMMOGRAPHY: Breast composition: There are scattered areas of fibroglandular density. Mass: None. Architectural distortion: None. Calcifications: No suspicious calcifications. Asymmetric density: None. Skin thickening: None. Axillary adenopathy: None. Implants: Subpectoral saline breast implants are present. IMPRESSION: No mammographic evidence of malignancy. Annual screening is recommended unless otherwise clinically indicated. ASSESSMENT: BI-RADS Category 1: Negative
== END ==
PROVIDERS: PCP Nurse Practitioner Family; Visit Provider Nurse Practitioner Obstetrics & Gynecology
DX: Z12.31 Encounter for screening mammogram for malignant neoplasm of breast (principal)
CPT/HCPCS: 77063; 77067

== ENCOUNTER 2023-08-12 09:29 | Outpatient (CLI) | payer BC, SELFPAY ==
[2023-08-12 09:54] LABS: Basophils % 0.8 % (0.1-2.0); Eosinophils # 0.1 K/mm3 (0.0-0.4); Eosinophils % 1.9 % (0.1-12.0); Hematocrit 44.3 % (37.0-47.0); Hemoglobin 14.8 g/dL (12.2-16.2); Lymphocytes # 1.4 K/mm3 (0.7-4.5); Lymphocytes % 29.9 % (10-50); Mean Corpuscular HGB Conc 33.5 g/dL (31.8-35.4); Mean Corpuscular Hemoglobin 33.9 pg (27.0-31.2); Mean Corpuscular Volume 101.4 fl (81-99); Mean Platelet Volume 8.1 fl (7.4-10.4); Monocytes # 0.2 K/mm3 (0.1-1.0); Monocytes % 4.4 % (1.7-9.3); Neutrophils % 62.9 % (37.0-80.0); Platelet Count 304 K/mm3 (142-424); Red Blood Count 4.37 M/mm3 (4.20-5.40); Red Cell Distribution Width 13.2 % (11.5-17.5); White Blood Count 4.7 K/mm3 (4.8-10.8)
[2023-08-12 10:24] LABS: Chloride 109 mmol/L (98-107)
[2023-08-12 10:25] LABS: Potassium 4.1 mmoL/L (3.5-5.1); Sodium 144 mmol/L (136-145)
[2023-08-12 10:27] LABS: Alanine Aminotransferase 20 U/L (12-78); Albumin Level 4.4 g/dl (3.5-5.0); Alkaline Phosphatase 87 U/L (38-126); Anion Gap 14.1 mEq/L (5-15); Aspartate Amino Transferase 29 U/L (14-36); Bilirubin,Direct 0.1 mg/dl (0.0-0.4); Bilirubin,Indirect 0.3 mg/dL (0.0-0.9); Bilirubin,Total 0.4 mg/dl (0.2-1.3); Bilirubin,Unconjugated 0.2 mg/dL (0.0-1.1); Blood Urea Nitrogen 8 mg/dl (7-17); Carbon Dioxide 25 mmol/L (22.0-30.0); Cholesterol 137 mg/dl (140-200); Estimated Glomerular Filt Rate 88 ml/min (>60); GFR (African American) 107 ML/MIN (>60); Triglycerides 131 mg/dl (30-150); VLDL Cholesterol 26 mg/dL (0-40)
[2023-08-12 10:28] LABS: Calcium 9.3 mg/dl (8.4-10.2); Chol/HDL Ratio 2.7 (1-3.5); Glucose 84 mg/dl (74-100); HDL Cholesterol 51 mg/dl (40-60); Magnesium 2.1 mg/dl (1.6-2.3)
[2023-08-12 10:39] LABS: Direct LDL Cholesterol 60.27 mg/dL (100-129)
[2023-08-12 10:50] LABS: Free T4 (Free Thyroxine) 0.85 ng/dl (0.78-2.19)
[2023-08-12 10:58] LABS: Thyroid Stimulating Hormone 2.33 uIU/mL (0.465-4.68)
== END 2023-08-12 23:59 ==
PROVIDERS: PCP Family Medicine; Visit Provider Physician Assistant
DX: E78.5 Hyperlipidemia, unspecified (principal); I11.9 Hypertensive heart disease without heart failure; I25.10 Atherosclerotic heart disease of native coronary artery without angina pectoris; Z95.5 Presence of coronary angioplasty implant and graft; F17.200 Nicotine dependence, unspecified, uncomplicated; I42.8 Other cardiomyopathies
CPT/HCPCS: 80048; 80061; 80076; 83735; 84439; 84443; 85025

== ENCOUNTER 2023-08-20 11:07 | Outpatient (CLI) | payer BC, SELFPAY ==
--- NOTE | 2023-08-20 11:07 | CA_ITS ---
APPROVED REPORT EXAM: Comprehensive 2D, Doppler, and color-flow Echocardiogram Gambling Box Person: Antonia Barton RT(R) Ht: 5 ft 5 in Wt: 143lbs BSA: 1.72 BP: 113/71 mmHg Indications: CAD, smoker, fatigue, SOB, hyperlipidemia, hx CM, LUIS 2D Dimensions Left Atrium 3.20 cm F: 2.7 - 3.8 LVEF (Velarde's) 56.70 % F: 54 - 74 LVOT 1.90 cm (M/F) 1.5-2.5 LV Volume 80.30 mL F: 46 - 106 LV Volume Index 46.7 mL/m2 F: 29 - 61 LA Volume 22.00 mL LA Volume Index 12.79 mL/m2 (M/F) 16-34 EF AP4 42.40 % EF AP2 63.5 % EF BP 56.7 % GL Strain -16.5 % M-Mode Dimensions RVDd 2.24 cm (0.9-2.6) LVDd 5.52 cm (3.5-5.7) Ao Diam 2.86 cm (2.0-3.7) LVDs 4.08 cm (3.5-5.7) IVSd 0.70 cm (0.6-1.1) PWd 0.74 cm (0.6-1.1) EF (Teich) 50.60% FS 26.10% EDV (Teich) 148.70 mL ESV (Teich) 73.40 mL LV Diastology E Decel Time 131 (160-240 msec) E/A Ratio 1.0 MED E' 8.9 (>= 7 cm/sec) E'/MED E' Ratio 8.63 (<= 14) LAT E' 7.6 (>= 10 cm/sec) E/LAT E' Ratio 10.11 (<= 14) Mitral Valve MV E Max Jorge. 77.0 (40-130 cm/s) MV A Velocity 74.0 (40-130 cm/s) E/A Ratio 1.04 MV Decel. Time 131 (160-240 ms) Tricuspid Valve TR P. Velocity 233.00 cm/s RAP Estimate 10.00 mmHg RVSP 31.80 mmHg Left Ventricle The left ventricle is normal size. Left ventricular systolic function is mildly decreased. There is increased LV wall thickness. There is moderate hypokinesis of the septal, anteroseptal, and inferoseptal LV batista. Grade 1 diastolic dysfunction is present. LVEF is 45%. Right Ventricle The right ventricle is normal size. The right ventricular systolic function is normal. Atria Left atrium is mildly dilated. Right atrium is mildly dilated. There is no Doppler evidence of interatrial shunt. Aortic Valve The aortic valve is mildly thickened. There is no aortic valvular stenosis. No aortic regurgitation is present. Mitral Valve The mitral valve leaflets are mildly thickened. No evidence of mitral valve stenosis. Trace mitral regurgitation. Tricuspid Valve The tricuspid valve leaflets are thin and pliable. Mild tricuspid regurgitation. RVSP is 20-25 mmHg. Pulmonic Valve The pulmonary valve is normal in structure. Trace pulmonic regurgitation. Great Vessels The aortic root is normal in size. The ascending aorta is not well visualized. IVC is normal in size and collapses >50% with inspiration. Pericardium There is no pericardial effusion. Other Information Study Quality: Fair Conclusion Mildly reduced LV systolic function (LVEF 45%). Moderate hypokinesis of the septal, anteroseptal, and inferoseptal LV batista. Grade 1 diastolic dysfunction. Mild biatrial dilation. Mild TR. Electronically signed by : La Manuel MD 08/24/2023 17:15:17
== END 2023-08-20 23:59 ==
LOC: RT 11:07
PROVIDERS: PCP Family Medicine; Visit Provider Physician Assistant
DX: I25.10 Atherosclerotic heart disease of native coronary artery without angina pectoris (principal); R94.31 Abnormal electrocardiogram [ECG] [EKG]; I42.8 Other cardiomyopathies; I10 Essential (primary) hypertension; E78.5 Hyperlipidemia, unspecified; F17.200 Nicotine dependence, unspecified, uncomplicated; R06.83 Snoring; Z95.5 Presence of coronary angioplasty implant and graft
CPT/HCPCS: 93306

== ENCOUNTER 2023-09-08 06:43 | Outpatient (CLI) | payer BC, SELFPAY ==
--- NOTE | 2023-09-08 06:57 | NM_ITS ---
APPROVED REPORT Exam: Nuclear Stress Test Indication: Abnormal EKG, Fatigue, High cholesterol, Tobacco use, Family history, CAD Patient Location: Outpatient Stress Tech: Erica Christian [place] Tech:Bobbi Chambers, ARRT, RT (R)(N) Ht: 5 ft 6 in Wt: 140 lbs Bra Size: C HR: 82 bpm BP: 140/90 mmHg BSA: 1.72 m2 Rhythm: NSR TID: 0.87 BMI: 22.5 History: Abnormal EKG, Fatigue, High cholesterol, Tobacco use, Family history, CAD Procedure: Patient exercised on Eran protocol 8:01 minutes and sec, resting heart rate 82 bpm, resting blood pressure 140/90 mmHg, with exercise maximum heart rate achived was 152 bpm which is 90 % of the maximum predicted heart rate and blood pressure was 164/92 mmHg. Test was stopped due to SOB. Patient denied any complaint of chest pain. Patient has average exercise capacity, achieved 10.1 METs of workload on treadmill, the blood pressure response to exercise was normal. Cardiac Stress and Resting SPECT Images: Cardiac Stress and Resting SPECT images were obtained using technetium 99m Myoview 31.2 mCi stress and 10.18 mCi at rest. Technically difficult study due to inability to visualize the myocardial borders well with inadequate radiotracer uptake at rest and at peak stress. Resting and stress imaging in supine and prone positions demonstrate a large sized, moderate, fixed perfusion defect in the inferior, inferoseptal, and anteroseptal LV batista. Calculation of LVEF cannot be made due to technical difficulties during image acquisition. Conclusion: Technically difficult study, inability to visualize the myocardial borders well with inadequate radiotracer uptake at rest and at peak stress. Large sized, moderate, fixed perfusion defect in the inferior, inferoseptal, and anteroseptal LV batista. Calculation of LVEF cannot be made due to technical difficulties during image acquisition. Overall, this study is considered nondiagnostic due to technically difficult study. Evaluation for ischemia with alternative imaging modalities is recommended. Electronically signed by : La Manuel MD 09/10/2023 13:21:04
[2023-09-08] MEDS: ISOTOPE MYOVIEW (PER STUDY) 1 DOSE IV (08:41)
[2023-09-08] MEDS: SODIUM CHLORIDE 0.9% 10ML SYR (RAD ONLY) 10 ML IV ×2 (08:41)
--- NOTE | 2023-09-08 08:46 | CA_ITS ---
APPROVED REPORT Technologist: Erica Zhang, Ht: 5 ft 5 in Wt: 143 lbs BSA: 1.72 m2 HR: 88 bpm BP: 146/84 mmHg Rhythm: NSR Medical History Medications: Omeprazole,,,,, Aspirin,,,,, Nitroglycerin,,,,, RoSUVASTATIN,,,,, Stress Test Details Test: Eran HR Resting HR: 82 bpm Max Heart Rate (APMHR): 169 bpm Max HR Achieved: 152 bpm Target HR (85% APMHR): 144 bpm % of APMHR: 90 Recovery HR: 84 bpm HR response to stress: Normal HR response to stress BP Resting BP: 140.0/90 mmHg Max BP: 164/92 mmHg Recovery BP: 132.0/75.0 mmHg BP response to stress: Normal blood pressure response to stress. ECG Resting ECG: NSR Stress ECG: < 0.[address] depression Arrhythmia: PVCs Recovery ECG: Return to baseline within 3 minutes of recovery Recovery Arrhythmia: PVCs Clinical Exercise duration: 08:01 min Highest Stage Achieved: III Exercise capacity: 10.1 METs Overall Exercise Capacity for Age: Average Stress ECG Conclusion The patient was able to exercise for a total of 8 minutes, 01 seconds. She achieved a total of 10.1 METS. She has average exercise capacity compared to age and sex matched peers. She has normal HR and BP response to exercise. Symptoms: SOB & headache with peak exercise. Arrhythmias/Ectopy: SR with PVCs at baseline and in recovery. ST-T Changes: <0.[address] segment changes. Conclusion: Average exercise capacity. No ischemic changes on EKG at peak stress. Myoview images are reported separately. Test Summary REST . . . . . . . Sitting REST . . . . . . . Standing REST 12:44 0.0 0.0 82 . 140/ 90 . . Stage 1 01:00 10.0 1.7 99 . . . . Stage 1 02:00 10.0 1.7 106 . . . . Stage 1 03:00 10.0 1.7 117 . 130/ 80 . . Stage 2 01:00 12.0 2.5 126 . . . . Stage 2 02:00 12.0 2.5 132 . . . . Stage 2 03:00 12.0 2.5 132 . 164/ 92 . . Stage 3 01:00 14.0 3.4 144 . . . . Stage 3 02:00 14.0 3.4 152 . . . . Stage 3 02:01 14.0 3.4 152 . . . Stop exercise at 08:01 RECOVERY 01:00 0.0 0.0 128 . . . . RECOVERY 02:00 0.0 0.0 108 . 158/ 79 . . RECOVERY 03:00 0.0 0.0 101 . 138/ 85 . . RECOVERY 04:00 0.0 0.0 84 . 138/ 85 . . RECOVERY 04:13 0.0 0.0 85 . 136/ 75 . . Electronically signed by : La Manuel MD 09/10/2023 13:11:30
== END 2023-09-08 23:59 ==
PROVIDERS: PCP Family Medicine; Visit Provider Physician Assistant
DX: I25.110 Atherosclerotic heart disease of native coronary artery with unstable angina pectoris (principal); R93.1 Abnormal findings on diagnostic imaging of heart and coronary circulation; Z72.0 Tobacco use
CPT/HCPCS: 78452; 93017; 93018; A9502

== ENCOUNTER 2023-09-12 08:49 | Day surgery (SDC) | payer BC, SELFPAY ==
[2023-09-12] VITALS (11 sets, daily range): BP systolic 87–121; BP diastolic 54–79; PULSE 53–77; RESP 15–18; TEMP 36.6; O2SAT 97–100; BMI 22.8
--- NOTE | 2023-09-12 07:08 | IR_ITS ---
APPROVED REPORT Patient Location: Outpatient PROCEDURES Left heart catheterization Left ventriculogram Selective coronary angiogram INDICATION Known coronary artery disease, Angina pectoris, Abnormal Myoview Informed consent was obtained prior to the procedure. COMPLICATIONS NONE Estimated Blood Loss: LESS THAN 10 ML TECHNIQUE One percent lidocaine used to anesthetize the right anterior aspect of the wrist. The right radial artery was accessed via the Seldinger technique. A 6 [place] sheath was placed in the right radial artery. 2.5 mg of Verapamil, 800 mcg of nitroglycerin, 1mg Lidocaine and 5000 U Heparin were given through the arterial sheath. The papa catheter was also used to perform left heart catheterization, left ventriculogram and selective coronary angiogram. At the end of the procedure the sheath was removed good hemostasis was achieved using Traclet band, patient was transferred to the postop holding area in stable condition. ANGIOGRAPHIC RESULTS The left main artery Normal The left anterior descending artery Is proximally normal and has a mid vessel stent which is widely patent free of in-stent restenosis with excellent proximal distal transitioning The circumflex artery Nondominant with 10% luminal irregularities The right coronary artery Large and dominant with mild 10% proximal luminal irregularities followed by mid vessel stent which is widely patent with excellent proximal distal transitioning The GIRON ventriculogram reveals Normal 60% The left ventricular end-diastolic pressure 10 mmHg IMPRESSION Widely patent mid LAD stent Widely patent mid dominant right coronary stent Mild nonflow limiting luminal irregularities Normal ejection fraction Normal LVEDP PLAN 1. Medical management Electronically signed by : Adryan Bedoya MD 09/12/2023 11:54:16
[2023-09-12 09:46] LABS: Basophils % 0.7 % (0.1-2.0); Eosinophils # 0.1 K/mm3 (0.0-0.4); Eosinophils % 1.5 % (0.1-12.0); Hematocrit 44.3 % (37.0-47.0); Hemoglobin 14.5 g/dL (12.2-16.2); Lymphocytes # 1.7 K/mm3 (0.7-4.5); Lymphocytes % 42.7 % (10-50); Mean Corpuscular HGB Conc 32.7 g/dL (31.8-35.4); Mean Corpuscular Hemoglobin 32.8 pg (27.0-31.2); Mean Corpuscular Volume 100.3 fl (81-99); Mean Platelet Volume 7.9 fl (7.4-10.4); Monocytes # 0.3 K/mm3 (0.1-1.0); Monocytes % 7.4 % (1.7-9.3); Neutrophils # 1.9 K/mm3 (1.8-7.8); Neutrophils % 47.8 % (37.0-80.0); Platelet Count 276 K/mm3 (142-424); Red Blood Count 4.42 M/mm3 (4.20-5.40); Red Cell Distribution Width 13.3 % (11.5-17.5); White Blood Count 3.9 K/mm3 (4.8-10.8)
[2023-09-12 09:53] LABS: Chloride 116 mmol/L (98-107); Potassium 3.8 mmoL/L (3.5-5.1); Sodium 142 mmol/L (136-145)
[2023-09-12 09:56] LABS: Anion Gap 4.8 mEq/L (5-15); Blood Urea Nitrogen 6 mg/dl (7-17); Calcium 7.7 mg/dl (8.4-10.2); Carbon Dioxide 25 mmol/L (22.0-30.0); Creatinine Clearance Estimated 131 mL/min (50-200); Estimated Glomerular Filt Rate 130 ml/min (>60); GFR (African American) 157 ML/MIN (>60); Glucose 82 mg/dl (74-100)
[2023-09-12] MEDS: VERAPAMIL 2.5MG/ML 2ML VIAL 2.5 MG IV (11:25)
[2023-09-12] MEDS: LIDOCAINE 1% 10ML MDV 20 ML IJ (11:25)
[2023-09-12] MEDS: NITROGLYCERIN 800MCG/8ML SYR (CATH LAB) 800 MCG IA (11:25)
[2023-09-12] MEDS: diphenhydrAMINE 50MG/ML VIAL 50 MG IV (11:25)
[2023-09-12] MEDS: HEPARIN 1,000 UNITS/ML 10ML VIAL (CATH LAB) 10000 UNIT IV (11:26)
[2023-09-12] MEDS: HEPARIN 1,000 UNITS/500ML NS (CATH LAB) 3000 UNIT IV (11:26)
[2023-09-12] MEDS: 0.9 % SODIUM CHLORIDE 500 ML 25 ML IV (11:26)
[2023-09-12] MEDS: MIDAZOLAM HCL 1MG/1ML 5ML VIAL 1 MG IV (11:26)
[2023-09-12] MEDS: FENTANYL 100MCG/2ML VIAL 50 MCG IV (11:27)
[2023-09-12] MEDS: IOPAMIDOL-370 (76%);100ML BOTTLE 50 ML IV (12:45)
== END 2023-09-12 14:29 | disposition home or self-care (01) ==
PROVIDERS: PCP Family Medicine; Visit Provider Internal Medicine
DX: I25.110 Atherosclerotic heart disease of native coronary artery with unstable angina pectoris (principal); I25.5 Ischemic cardiomyopathy; I10 Essential (primary) hypertension; R93.1 Abnormal findings on diagnostic imaging of heart and coronary circulation; Z95.5 Presence of coronary angioplasty implant and graft; Z79.899 Other long term (current) drug therapy; R06.02 Shortness of breath; Z82.49 Family history of ischemic heart disease and other diseases of the circulatory system; F17.210 Nicotine dependence, cigarettes, uncomplicated
CPT/HCPCS: 80048; 85025; 93458; 99152; C1725; C1769; J1644; Q9967

== ENCOUNTER 2023-11-06 17:20 | Emergency (ER) | payer BC, SELFPAY ==
[2023-11-06 17:50] VITALS: BP 141/87; PULSE 75; RESP 19; TEMP 36.7; O2SAT 98; BMI 24.6
[2023-11-06 18:12] LABS: UTC Strep Screen (Rapid) Negative (Negative)
[2023-11-06 18:13] LABS: UTC Influenza A Antigen Negative (Negative); UTC Influenza B Antigen Negative (Negative)
--- NOTE | 2023-11-06 18:16 | ED_ITS ---
Discharge Plan Disposition Patient Disposition: Home, Self-Care Condition: Good Prescriptions Prescriptions: No Action aspirin [Adult Low Dose Aspirin] 81 mg tablet,delayed release (DR/EC) 81 mg PO DAILY rosuvastatin 20 mg tablet See Rx Instructions .ROUTE .COMPLEX Qty: 30 11RF Dose Instruction: TAKE 1 TABLET BY MOUTH DAILY FOR HIGH CHOLESTEROL Rx Instructions: TAKE 1 TABLET BY MOUTH DAILY FOR HIGH CHOLESTEROL nitroglycerin 0.4 MG tablet, sublingual 0.4 mg sublingual Q5MINP PRN (Reason: Chest Pain) omeprazole 20 MG tablet,delayed release (DR/EC) 20 mg PO DAILY Referrals Follow up/Referrals: Provider,Referral, MD [Primary Care Provider] - See instructions Activity Restrictions/Add. Instructions Additional Instructions/Restrictions: *Monitor Temp, Over the counter Motrin or Tylenol as directed/as needed Tylenol every 4 hours and Motrin every 6 hours (as long as your family doctor has told you that you can take it) for fever or pain. and straight to ER if unable to lower temp less than 101.0 after medication given *Warm salt water gargles may help to soothe the throat *Throat Lozenges? *Warm fluids like tea with honey may help to soothe the throat? *Sleep elevated *Humidifier/Vaporizer *Your throat swab was sent for culture. Those results are typically sent to your primary care. Be sure to follow up in 2-3 days with your family doctor/primary care physician if no improvement so they can review those result and treat if necessary. If you don?t have a primary care doctor, I recommend you get one but in the mean time, you will have to return to a walk in clinic Follow up IMMEDIATELY for new or worsening symptoms or no Noticeable improvement over the next 48-72 hours. 911 for difficulty breathing or swallowing Clinical Impressions Clinical Impression: URI (upper respiratory infection) Qualifiers: URI type: unspecified URI Qualified Code(s): J06.9 - Acute upper respiratory infection, unspecified Instructions Patient Instructions: Sore Throat, DI for Nasal Congestion Discharge ED Provider: Adriana Rajput [facility] [place] General Stated complaint: abdiel, BRADY Mode of Arrival: Ambulatory Source of Information: Patient Limitations: No Limitations Time Seen by Provider: 11/06/23 18:17 Description of Symptoms (Recalled from Triage Doc. by RN): PATIENT C/O SORE THROAT, HEADACHE AND RUNNY NOSE X 3 DAYS HEENT Symptoms (Recalled from RN notes): Yes Resp Symptoms (Recalled from RN notes): No Skin Symptoms (Recalled from RN notes): No MS Symptoms (Recalled from RN notes): No Functional Status (Recalled from RN notes): WNL History of Present Illness Provider Complaint: Pt states that she has been having sore throat, sinus congestion and headache States that she feels like she is trying to get a sinus infection or something States that today she wasnt feeling any better so she came in to get checked Related Data Home Medications Medication Instructions Recorded Confirmed aspirin 81 mg tablet,delayed 81 mg PO DAILY heart 04/15/18 09/22/23 release (Adult Low Dose Aspirin) nitroglycerin 0.4 mg sublingual 0.4 mg sublingual Q5MINP PRN Chest 11/08/20 09/22/23 tablet Pain omeprazole 20 mg tablet,delayed 20 mg PO DAILY GERD 11/08/20 09/22/23 release Previous Rx's Medication Instructions Recorded rosuvastatin 20 mg tablet See Rx Instructions .Route 06/23/23 .COMPLEX #30 tabs Allergies Allergy/AdvReac Type Severity Reaction Status Date / Time ibuprofen [IBUPROFEN] Allergy Intermediate I-RASH Verified 09/22/23 10:12 Worker's Comp Is this a Worker's Comp case?: No [facility] Disclaimer: The information contained in this section may have been updated after the patient was seen, as this information can be updated by other users. Medical History Abnormal echocardiogram Daytime sleepiness Fatigue Hyperlipidemia SOB (shortness of breath) Family History Other Coronary artery disease Heart attack Hyperlipidemia Hypertension Social History Smoking Status: Current every day smoker alcohol intake: never substance use type: denies use current occupational status: employed Travel in the last 8 weeks: Inside the [place] household members: spouse housing: house caffeine: Yes ROS Obtained: Yes All systems reviewed & no additional complaints except as documented and Yes Systems reviewed as appropriate & no additional complaints except as documented Constitutional Constitutional: Reports system reviewed and no additional complaints, except as documented, Reports as per HPI and Reports headache(s) ENT Ears, Nose, Mouth, and Throat: Reports system reviewed and no additional complaints, except as documented, Reports as per HPI, Reports headache(s), Reports nasal congestion, Reports sinus pressure and Reports sore throat Cardiovascular Cardiovascular: Reports system reviewed and no additional complaints, except as documented and Reports as per HPI Respiratory Respiratory: Reports system reviewed and no additional complaints, except as documented and Reports as per HPI Gastrointestinal Gastrointestingal: Reports system reviewed and no additional complaints, except as documented and as per HPI Neurologic Neurologic: Reports headache(s) Physical Exam General General appearance: alert and in no apparent distress ENT ENT exam: Present mucous membranes moist Expanded ENT Exam Nose exam: Present sinus tenderness (mild) Throat exam: Present other (pharyngeal erythema noted with PND) Respiratory Respiratory exam: Present normal lung sounds bilaterally; Absent respiratory distress or wheezes Cardiovascular Cardiovascular exam: Present regular rate, normal rhythm and normal heart sounds Abdominal Exam Abdominal exam: Present soft and normal bowel sounds; Absent distention or tenderness Neurological Exam Neurological exam: Present alert, oriented X3 and normal gait Medical Decision Making Blake Inquiry Pt receiving controlled substance: No Blake was queried for this patient: No Vital Signs: 11/06/23 17:50 Temperature 98.1 F Temperature Source Oral Pulse Rate [Right Brachial] 75 Respiratory Rate 19 Blood Pressure [Right Arm] 141/87 H Blood Pressure Mean [Right Arm] 105 Blood Pressure Source [Right Arm] Automatic Cuff Blood Pressure Position [Right Arm] Sitting 02 Sat by Pulse Oximetry 98 Oxygen Delivery Method Room Air Lab Data Lab results reviewed: Yes I reviewed the patient's lab results. Lab Results 11/06/23 18:07: Influenza Type A Ag Negative, Influenza Type B Ag Negative, Strep Scn Rapid Clinic Negative Orders (Tests/Meds): ORDERS Category Date Time Status Strep Screen Confirmation Stat Micro 11/06/23 18:07 Received
[2023-11-06] MEDS: METHYLPREDNISOLONE SOD SUCC 125MG VIAL 125 MG IM (18:34)
[2023-11-06] MEDS: cefTRIAXone 1GM VIAL 1 GM IM (18:34)
[2023-11-06] MEDS: LIDOCAINE 1% 5ML PF VIAL IM (18:34)
[2023-11-06 18:41] VITALS: BP 141/87; PULSE 75; RESP 19; TEMP 36.7; O2SAT 98
== END 2023-11-06 18:52 | disposition home or self-care (01) ==
PROVIDERS: Emergency Provider Nurse Practitioner
DX: R51.9 Headache, unspecified (principal); J06.9 Acute upper respiratory infection, unspecified; R09.81 Nasal congestion; R07.0 Pain in throat; F17.210 Nicotine dependence, cigarettes, uncomplicated
CPT/HCPCS: 87804; 87880; 96372; 99212; 99214; G0463; J0696

== ENCOUNTER 2024-04-24 08:50 | Emergency (ER) | payer BC, SELFPAY ==
[2024-04-24 09:02] VITALS: BP 133/82; PULSE 100; RESP 16; TEMP 36.7; O2SAT 96; BMI 23.1
--- NOTE | 2024-04-24 09:22 | EXP.UTC ---
Discharge Plan Disposition Patient Disposition: Home, Self-Care Condition: Good Prescriptions Prescriptions: New methylprednisolone 4 mg Tablets,Dose Pack 4 mg PO DIRECTED 6 Days Qty: 21 0RF Rx Instructions: Take 1 pack as directed for 6 days acyclovir 800 mg tablet 800 mg PO 5XDAY 7 Days Qty: 35 0RF triamcinolone acetonide 0.1 % cream 1 applic topical BID PRN (Reason: itching) Qty: 30 0RF No Action aspirin [Adult Low Dose Aspirin] 81 mg tablet,delayed release (DR/EC) 81 mg PO DAILY rosuvastatin 20 mg tablet See Rx Instructions .ROUTE .COMPLEX Qty: 30 11RF Dose Instruction: TAKE 1 TABLET BY MOUTH DAILY FOR HIGH CHOLESTEROL Rx Instructions: TAKE 1 TABLET BY MOUTH DAILY FOR HIGH CHOLESTEROL nitroglycerin 0.4 MG tablet, sublingual 0.4 mg sublingual Q5MINP PRN (Reason: Chest Pain) omeprazole 20 MG tablet,delayed release (DR/EC) 20 mg PO DAILY Referrals Follow up/Referrals: Alina Goode MD [Primary Care Provider] - See instructions Activity Restrictions/Add. Instructions Additional Instructions/Restrictions: Drink plenty of fluids with the medications. Take tylenol or ibuprofen for pain. Take the medications as directed. Follow up with your regular doctor. GO TO THE ER FOR ANY WORSENING SYMPTOMS Don't start the oral steroids (medrol dose pack) until tomorrow since you had the shot here Clinical Impressions Clinical Impression: Shingles Instructions Patient Instructions: Shingles, DI for Shingles, Acyclovir, Dexamethasone Injection Print Language Print Language: Estonian Discharge ED Provider: Arslan Benson [facility] [place] HPI General Stated complaint: skin rash or bite, R shoulder blade Mode of Arrival: Ambulatory Source of Information: Patient Limitations: No Limitations Time Seen by Provider: 04/24/24 09:21 Description of Symptoms (Recalled from Triage Doc. by RN): Reports right shoulder pain with possible spider bite. HEENT Symptoms (Recalled from RN notes): No Resp Symptoms (Recalled from RN notes): No Skin Symptoms (Recalled from RN notes): Yes MS Symptoms (Recalled from RN notes): Yes Functional Status (Recalled from RN notes): wnl Related Data Home Medications ?Medication ?Instructions ?Recorded ?Confirmed aspirin 81 mg tablet,delayed 81 mg PO DAILY heart 04/15/18 09/22/23 release (Adult Low Dose Aspirin) nitroglycerin 0.4 mg sublingual 0.4 mg sublingual Q5MINP PRN Chest 11/08/20 09/22/23 tablet Pain omeprazole 20 mg tablet,delayed 20 mg PO DAILY GERD 11/08/20 09/22/23 release Previous Rx's ?Medication ?Instructions ?Recorded rosuvastatin 20 mg tablet See Rx Instructions .Route 02/11/24 .COMPLEX #30 tabs acyclovir 800 mg tablet 800 mg PO 5XDAY 7 days #35 tabs 04/24/24 methylprednisolone 4 mg tablets in 4 mg PO DIRECTED 6 days #21 tabs 04/24/24 a dose pack triamcinolone acetonide 0.1 % 1 applic topical BID PRN itching 04/24/24 topical cream #30 grams Allergies Allergy/AdvReac Type Severity Reaction Status Date / Time ibuprofen [IBUPROFEN] Allergy Intermediate I-RASH Verified 09/22/23 10:12 Worker's Comp Is this a Worker's Comp case?: No [facility] Disclaimer: The information contained in this section may have been updated after the patient was seen, as this information can be updated by other users. Medical History Abnormal echocardiogram Daytime sleepiness Fatigue Hyperlipidemia SOB (shortness of breath) Family History Other Coronary artery disease Heart attack Hyperlipidemia Hypertension Social History Smoking Status: Current every day smoker alcohol intake: never substance use type: denies use current occupational status: employed Travel in the last 8 weeks: [place] the [place] household members: spouse housing: house caffeine: Yes ROS Obtained: Yes All systems reviewed & no additional complaints except as documented Constitutional Constitutional: Denies chills and Denies fever(s) Eyes Eyes: Denies eye discharge ENT Ears, Nose, Mouth, and Throat: Denies dizziness, Denies otalgia and Denies sore throat Cardiovascular Cardiovascular: Denies chest pain Respiratory Respiratory: Denies shortness of breath, Denies chest congestion, Denies cough, Denies stridor and Denies wheezing Gastrointestinal Gastrointestingal: Denies nausea or vomiting Musculoskeletal Musculoskeletal: Reports system reviewed and no additional complaints, except as documented and Denies arthralgias Integumentary/Breasts Skin/Breast: Reports as per HPI and Denies rash Neurologic Neurologic: Denies dizziness and Denies paresthesias Allergic/Immunologic Allergic/Immunologic: Denies wheezing Physical Exam General General appearance: alert and in no apparent distress Head Head exam: atraumatic, normocephalic and normal inspection Eye Eye exam: Present normal appearance, PERRL and EOMI ENT ENT exam: Present normal exam, normal oropharynx, mucous membranes moist, TM's normal bilaterally and normal external ear exam Neck Neck exam: Present normal inspection, full ROM and trachea midline; Absent meningismus or lymphadenopathy Chest Chest inspection: Present normal inspection and symmetric chest wall rise; Absent tenderness Respiratory Respiratory exam: Present normal lung sounds bilaterally; Absent respiratory distress Cardiovascular Cardiovascular exam: Present regular rate and normal rhythm; Absent JVD Abdominal Exam Abdominal exam: Present soft and normal bowel sounds; Absent distention, tenderness or guarding Extremities Exam Extremities exam: Present normal inspection, full ROM and normal capillary refill; Absent calf tenderness Back Exam Back exam: Present normal inspection; Absent tenderness Neurological Exam Neurological exam: Present alert and oriented X3 Psychiatric Psychiatric exam: Present normal affect and normal mood Skin Skin exam: Present rash (there is a patch of vesicles on the center of her upper back that extends toward her right axilla. ) Lymphatic Lymphatic Findings: no adenopathy Medical Decision Making Medical Records Medical records reviewed: No I reviewed the patient's medical records. Screening: Per USPSTF and CDC recommendations, given the prevalence of disease in our region, it is our hospital?s policy to screen for HIV and viral Hepatitis for all patients aged 18 and over and those with ongoing risk factors. Blake Inquiry Pt receiving controlled substance: No Vital Signs: 04/24/24 09:02 Temperature 98.0 F Temperature Source Oral Pulse Rate [Radial] 100 H Respiratory Rate 16 Blood Pressure [Right Arm] 133/82 Blood Pressure Mean [Right Arm] 99 Blood Pressure Source [Right Arm] Automatic Cuff Blood Pressure Position [Right Arm] Sitting 02 Sat by Pulse Oximetry 96 Oxygen Delivery Method Room Air
[2024-04-24] MEDS: DEXAMETHASONE 4MG/ML 1ML VIAL 8 MG IM (09:40)
[2024-04-24 10:16] VITALS: BP 133/82; PULSE 100; RESP 16; TEMP 36.7; O2SAT 96
== END 2024-04-24 10:17 | disposition home or self-care (01) ==
PROVIDERS: Emergency Provider Nurse Practitioner Family; PCP Family Medicine
DX: B02.8 Zoster with other complications (principal); M25.511 Pain in right shoulder; R21 Rash and other nonspecific skin eruption; E78.5 Hyperlipidemia, unspecified; F17.200 Nicotine dependence, unspecified, uncomplicated
CPT/HCPCS: 96372; 99212; 99214; G0463; J1100

== ENCOUNTER 2024-09-22 08:52 | Outpatient (CLI) | payer BC, SELFPAY ==
[2024-09-22 09:18] LABS: Basophils % 0.8 % (0.1-2.0); Eosinophils % 0.8 % (0.1-12.0); Hematocrit 46.2 % (37.0-47.0); Hemoglobin 15.5 g/dL (12.2-16.2); Lymphocytes # 1.5 K/mm3 (0.7-4.5); Lymphocytes % 31.1 % (10-50); Mean Corpuscular HGB Conc 33.5 g/dL (31.8-35.4); Mean Corpuscular Volume 95.5 fl (81-99); Mean Platelet Volume 9.8 fl (7.4-10.4); Monocytes # 0.3 K/mm3 (0.1-1.0); Monocytes % 5.3 % (1.7-9.3); Neutrophils # 2.9 K/mm3 (1.8-7.8); Neutrophils % 61.8 % (37.0-80.0); Platelet Count 252 K/mm3 (142-424); Red Blood Count 4.84 M/mm3 (4.20-5.40); Red Cell Distribution Width 13.2 % (11.5-17.5); White Blood Count 4.7 K/mm3 (4.8-10.8)
[2024-09-22 09:47] LABS: Alanine Aminotransferase 23 U/L (12-78); Albumin Level 5.2 g/dl (3.5-5.0); Alkaline Phosphatase 75 U/L (38-126); Anion Gap 12.1 mEq/L (5-15); Aspartate Amino Transferase 29 U/L (14-36); Bilirubin,Direct 0.4 mg/dl (0.0-0.4); Bilirubin,Indirect 0.1 mg/dL (0.0-0.9); Bilirubin,Total 0.5 mg/dl (0.2-1.3); Bilirubin,Unconjugated 0.1 mg/dL (0.0-1.1); Blood Urea Nitrogen 9 mg/dl (7-17); Calcium 9.8 mg/dl (8.4-10.2); Carbon Dioxide 22 mmol/L (22.0-30.0); Chloride 111 mmol/L (98-107); Chol/HDL Ratio 3.1 (1-3.5); Cholesterol 176 mg/dl (140-200); Estimated Glomerular Filt Rate 88 ml/min (>60); GFR (African American) 106 ML/MIN (>60); Glucose 91 mg/dl (74-100); HDL Cholesterol 57 mg/dl (40-60); Magnesium 1.9 mg/dl (1.6-2.3); Potassium 4.1 mmoL/L (3.5-5.1); Sodium 141 mmol/L (136-145); Total Protein,Serum 7.3 g/dl (6.3-8.2); Triglycerides 190 mg/dl (30-150); VLDL Cholesterol 38 mg/dL (0-40)
[2024-09-22 09:54] LABS: Hemoglobin A1C 5.4 % (4.0-6.0)
[2024-09-22 09:56] LABS: Free T4 (Free Thyroxine) 0.79 ng/dl (0.78-2.19)
[2024-09-22 09:58] LABS: Direct LDL Cholesterol 80.79 mg/dL (100-129)
[2024-09-27 23:22] LABS: Vitamin B1 117.2 nmol/L (66.5-200.0)
[2024-10-05 20:12] LABS: 1,25 Dihydroxy Vitamin D 64 pg/mL (.); 1,25-Dihydroxy, Vitamin D-2 <10 pg/mL (.); 1,25-Dihydroxy, Vitamin D-3 64 pg/mL (.)
== END 2024-09-22 23:59 | disposition home or self-care (01) ==
LOC: LAB 08:54
PROVIDERS: PCP Family Medicine; Visit Provider Physician Assistant
DX: E78.5 Hyperlipidemia, unspecified (principal); G62.9 Polyneuropathy, unspecified; I25.110 Atherosclerotic heart disease of native coronary artery with unstable angina pectoris; Z95.5 Presence of coronary angioplasty implant and graft; Z68.24 Body mass index [BMI] 24.0-24.9, adult; F17.210 Nicotine dependence, cigarettes, uncomplicated; I10 Essential (primary) hypertension
CPT/HCPCS: 36415; 80048; 80061; 80076; 82607; 82652; 83036; 83735; 84425; 84439; 84443; 85025

== ENCOUNTER 2024-11-16 07:48 | Outpatient (CLI) | payer BC, SELFPAY ==
--- NOTE | 2024-11-16 08:00 | MM_ITS ---
PROCEDURE INFORMATION: Exam: MG Bilateral Screening 3D Mammography Exam date and time: 11/16/2024 8:03 AM Age: 54 years old Clinical indication: Screening examination. TECHNIQUE: Imaging protocol: Bilateral Screening tomosynthesis and 2D mammography including computer-aided detection (CAD) when performed. COMPARISON: 1. MG MM DIG SC MAMM IMPLANT BI CAD 06/02/2023 4:21 PM 2. MG MM DIG SCREENING MAMM BI W/CAD 08/02/2020 4:22 PM FINDINGS: MAMMOGRAPHY: Breast composition: There are scattered areas of fibroglandular density. Mass: None. Architectural distortion: None. Calcifications: No suspicious calcifications. Asymmetric density: None. Skin thickening: None. Axillary adenopathy: None. Implants: Post pectoral saline breast implants are present. IMPRESSION: No mammographic evidence of malignancy. Annual screening is recommended unless otherwise clinically indicated. ASSESSMENT: BI-RADS Category 1: Negative.
== END 2024-11-16 23:59 | disposition home or self-care (01) ==
LOC: RAD 07:48
PROVIDERS: PCP Family Medicine; Visit Provider Nurse Practitioner Obstetrics & Gynecology
DX: Z12.31 Encounter for screening mammogram for malignant neoplasm of breast (principal)
CPT/HCPCS: 77063; 77067

== ENCOUNTER 2024-11-29 09:34 | Emergency (ER) | payer BC, SELFPAY ==
[2024-11-29 09:41] VITALS: BP 123/85; PULSE 84; RESP 20; TEMP 37.1; O2SAT 97; BMI 24.1
--- NOTE | 2024-11-29 10:11 | XR_ITS ---
FINAL REPORT CLINICAL HISTORY: running overuse, pain FINDINGS: RIGHT TIBIA/FIBULA Three views were obtained. There is no acute fracture or dislocation. Joint spaces are maintained. Bones are normally mineralized. There is no bony erosion. No acute soft tissue abnormality is seen. IMPRESSION: No acute bony abnormality. Reviewed, Interpreted and Dictated by David Tellez MD Transcribed by Heavenly Faustin Authenticated and [facility]
--- NOTE | 2024-11-29 10:11 | XR_ITS ---
FINAL REPORT CLINICAL HISTORY: running overuse, pain FINDINGS: RIGHT FOOT 3 views of the right foot were obtained. There is no acute fracture or dislocation. Visualized joint spaces are normally aligned. Soft tissues are unremarkable. IMPRESSION: No acute bony abnormality. Reviewed, Interpreted and Dictated by David Tellez MD Transcribed by Heavenly Faustin Authenticated and [facility]
--- NOTE | 2024-11-29 10:11 | XR_ITS ---
FINAL REPORT CLINICAL HISTORY: running overuse, pain FINDINGS: RIGHT ANKLE 3 views of the right ankle were obtained. There is no acute fracture or dislocation. There is a 12 mm os trigonum. The mortise is intact. Visualized joint spaces are normally aligned. Soft tissues are unremarkable. IMPRESSION: No acute bony abnormality. Reviewed, Interpreted and Dictated by David Tellez MD Transcribed by Heavenly Faustin Authenticated and [facility]
--- NOTE | 2024-11-29 10:11 | XR_ITS ---
FINAL REPORT CLINICAL HISTORY: running overuse, pain FINDINGS: LEFT TIBIA/FIBULA Three views were obtained. There is no acute fracture or dislocation. Joint spaces are maintained. Bones are normally mineralized. There is no bony erosion. No acute soft tissue abnormality is seen. IMPRESSION: No acute bony abnormality. Reviewed, Interpreted and Dictated by David Tellez MD Transcribed by Heavenly Faustin Authenticated and [facility]
--- NOTE | 2024-11-29 10:12 | ED_ITS ---
Discharge Plan Disposition Patient Disposition: Home, Self-Care Condition: Good Prescriptions Prescriptions: New diclofenac sodium [Voltaren Arthritis Pain] 1 % gel 2 g topical QID Qty: 100 0RF Rx Instructions: apply to single elbow, wrist or hand; for hand includes palm/fingers/back of hand methocarbamol 500 mg tablet 500 mg PO Q8H PRN (Reason: pain) Qty: 20 0RF No Action aspirin [Adult Low Dose Aspirin] 81 mg tablet,delayed release (DR/EC) 81 mg PO DAILY rosuvastatin 20 mg tablet See Rx Instructions .ROUTE .COMPLEX Qty: 30 11RF Dose Instruction: TAKE 1 TABLET BY MOUTH DAILY FOR HIGH CHOLESTEROL Rx Instructions: TAKE 1 TABLET BY MOUTH DAILY FOR HIGH CHOLESTEROL nitroglycerin 0.4 MG tablet, sublingual 0.4 mg sublingual Q5MINP PRN (Reason: Chest Pain) omeprazole 20 MG tablet,delayed release (DR/EC) 20 mg PO DAILY Referrals Follow up/Referrals: Alina Goode MD [Primary Care Provider] - See instructions Laz Galvin DO [Staff Physician] - See instructions Activity Restrictions/Add. Instructions Additional Instructions/Restrictions: You were evaluated in the emergency department today. At this time, x-rays do not demonstrate any acute broken bones, and your labs are reassuring. Please pick remover your prescriptions at the pharmacy and take them as prescribed. You may also take Tylenol every 4-6 hours as needed for pain. Rest, ice, and elevate your extremities to reduce pain and swelling. Follow-up closely with your primary care provider. If you continue to have significant pain and swelling, you may choose to follow-up with orthopedics as well. We have provided you with information for Dr. Galvin. Return to the emergency department for new or worsening symptoms. The topical gel we have prescribed you is an NSAID like ibuprofen. It should be ok to take given your mild reaction to ibuprofen, but monitor for any skin irritation or rash. If this occurs, stop using the medication. Clinical Impressions Clinical Impression: Tendinitis of both knees, Right ankle swelling Stand Alone Forms Stand Alone Forms: Work/School Release Instructions Patient Instructions: DI for Tendinitis, DI for Patellar Tendinopathy, DI for Ankle Pain Print Language Print Language: Slovak Discharge ED Provider: Alva Kamara General Adult HPI General Chief complaint: PAIN Stated complaint: both knees, right ankle pain swelling Time Seen by Provider: 04/28/25 09:43 Mode of Arrival: Ambulatory Source of Information: Patient Description of Symptoms (Recalled from ER Triage Doc. by RN): Patient presents to ED with pain to her right ankle and bilateral knees. Patient denies any falls, but states she ran a 5K over the weekend. Patient states she has tried tylenol, rest, and ice with no relief. History of Present Illness HPI narrative: This patient is a 54-year-old female who has history of hypertension, cardiomyopathy, CAD status post stenting, hyperlipidemia presenting to the emergency department for evaluation with concern for bilateral leg pain. Patient states that she ran a 5K about a week ago over the weekend and has had continued pain in her lower extremity since then. She reports she did not train for this and can tell during the run that she was becoming sore. It is on the lower leg just below her knee on the medial aspect of both legs. Her right leg is worse and she also has swelling of her right ankle. Pain is worse with going up or down stairs, walking, or with movements of her ankle and knee joints. No falls or injuries noted. No back pain, numbness, tingling, or other concerns. Related Data Home Medications ?Medication ?Instructions ?Recorded ?Confirmed aspirin 81 mg tablet,delayed 81 mg PO DAILY heart 04/15/18 11/03/24 release (Adult Low Dose Aspirin) nitroglycerin 0.4 mg sublingual 0.4 mg sublingual Q5MINP PRN Chest 11/08/20 11/03/24 tablet Pain omeprazole 20 mg tablet,delayed 20 mg PO DAILY GERD 11/08/20 11/03/24 release Previous Rx's ?Medication ?Instructions ?Recorded rosuvastatin 20 mg tablet See Rx Instructions .Route 02/11/24 .COMPLEX #30 tabs diclofenac sodium 1 % topical gel 2 g topical QID #100 grams 11/29/24 (Voltaren Arthritis Pain) methocarbamol 500 mg tablet 500 mg PO Q8H PRN pain #20 tabs 11/29/24 Allergies Allergy/AdvReac Type Severity Reaction Status Date / Time ibuprofen (IBUPROFEN) Allergy Intermediate I-RASH Verified 11/03/24 08:58 [facility] Disclaimer: The information contained in this section may have been updated after the patient was seen, as this information can be updated by other users. Medical History Abnormal echocardiogram SOB (shortness of breath) Daytime sleepiness Fatigue Hyperlipidemia Family History Other Coronary artery disease Heart attack Hyperlipidemia Hypertension Social History Smoking Status: Current every day smoker alcohol intake: never substance use type: denies use current occupational status: employed Travel in the last 8 weeks: Inside the [place] household members: spouse housing: house caffeine: Yes Have you lived/traveled outside US in past 30 days?: No Contact w/someone who lives/traveled outside US past 30 days?: No Exposure to someone with infectious disease in past 14 days?: No Do you have a fever (greater than 100.4 F or 38 C)?: No Have you tested positive for COVID-19: No Exposed to someone with COVID-19 in past 14 days?: No Do you have a sore throat?: No Do you have a cough?: No Do you have any weakness?: No Do you have any diarrhea?: No Are you experiencing any unusual bleeding?: No Do you have any muscle aches/pain?: No Do you have any abdominal pain?: No Are you experiencing loss of taste or smell?: No Other Medical History Have you received the Flu Vaccine for this season: No Have you received the Pneumonia Vaccine: No ROS Obtained: Yes All systems reviewed & no additional complaints except as documented Physical Exam General General appearance: alert and in no apparent distress Head Head exam: atraumatic and normocephalic Eye Eye exam: Present normal appearance, PERRL and EOMI ENT ENT exam: Present normal exam, normal oropharynx, mucous membranes moist and normal external ear exam Neck Neck exam: Present normal inspection, full ROM and trachea midline; Absent tenderness Chest Chest inspection: Present normal inspection and symmetric chest wall rise; Absent tenderness Respiratory Respiratory exam: Present normal lung sounds bilaterally; Absent respiratory distress, wheezes, stridor or accessory muscle use Cardiovascular Cardiovascular exam: Present regular rate and normal rhythm Abdominal Exam Abdominal exam: Present soft; Absent distention, tenderness or guarding Extremities Exam Extremities exam: Present full ROM, tenderness, normal capillary refill, joint swelling (R ankle) and other Expanded Lower Extremity Exam Right: Leg image: 2 1. Tenderness to palpation without obvious deformity or skin color changes. Neurovascularly intact distally 2. Tenderness to palpation without obvious deformity or skin color changes. Neurovascularly intact distally Comment: Right ankle swelling with no redness, warmth. Intact range of motion but does have pain with range of motion Back Exam Back exam: Present normal inspection and full ROM; Absent tenderness Neurological Exam Neurological exam: Present alert, oriented X3, CN II-XII intact and normal gait; Absent motor sensory deficit Psychiatric Psychiatric exam: Present normal affect and normal mood Skin Skin exam: Present warm and dry Medical Decision Making Medical Records Medical records reviewed: Yes I reviewed the patient's medical records. Screening: Per USPSTF and CDC recommendations, given the prevalence of disease in our region, it is our hospital?s policy to screen for HIV and viral Hepatitis for all patients aged 18 and over and those with ongoing risk factors. Blake Inquiry Pt receiving controlled substance: No Vital Signs: 11/29/24 09:41 11/29/24 11:19 Temperature 98.8 F 98.7 F Temperature Source Oral Oral Pulse Rate 88 Pulse Rate [Right Brachial] 84 Respiratory Rate 20 18 Blood Pressure 128/74 Blood Pressure [Right Arm] 123/85 Blood Pressure Mean [Right Arm] 97 Blood Pressure Source Automatic Cuff Blood Pressure Source [Right Arm] Automatic Cuff Blood Pressure Position Supine Blood Pressure Position [Right Arm] Supine 02 Sat by Pulse Oximetry 97 Oxygen Delivery Method Room Air Room Air Lab Data Lab results reviewed: Yes I reviewed the patient's lab results. Lab Results 11/29/24 10:40: WBC 5.2, RBC 4.33, Hgb 14.0, Hct 41.8, MCV 96.5, MCH 32.3 H, MCHC 33.5, RDW 13.6, Plt Count 336, MPV 9.2, Neut % (Auto) 63.1, Lymph % (Auto) 28.4, [place] % (Auto) 6.9, Eos % (Auto) 0.8, Baso % (Auto) 0.6, Neut # (Auto) 3.3, Lymph # (Auto) 1.5, [place] # (Auto) 0.4, Eos # (Auto) 0.0, Baso # (Auto) 0.0, Sodium 143, Potassium 4.4, Chloride 111 H, Carbon Dioxide 27, Anion Gap 9.4, BUN 8, Creatinine 0.60, Estimated Creat Clear 113, Estimated GFR 105, Est GFR ( Amer) 127, Glucose 89, Calcium 8.8, Total Bilirubin 0.6, AST 31, ALT 16, Alkaline Phosphatase 76, Total Creatine Kinase 96, Total Protein 7.2, Albumin 4.3, Globulin 2.9, Albumin/Globulin Ratio 1.5 11/29/24 10:40 11/29/24 10:40 Orders (Tests/Meds): ED MEDICATIONS Discontinued Medications Generic Name Dose Route Start Last Admin Trade Name Freq PRN Reason Stop Dose Admin Acetaminophen 1,000 mg 11/29/24 10:04 11/29/24 10:30 Acetaminophen 500mg Tab PO 11/29/24 10:05 1,000 mg ONCE ONE Administration Lactated Ringer's 1,000 mls @ 999 mls/hr 11/29/24 10:04 11/29/24 10:35 Lactated Ringer's 1000 Ml Bag IV 11/29/24 11:04 999 mls/hr .Q1H1M ONE Administration Ketorolac Tromethamine 15 mg 11/29/24 10:04 11/29/24 11:12 Ketorolac 30mg/Ml Vial IV 11/29/24 10:05 Not Given ONCE ONE Ketorolac Tromethamine 30 mg 11/29/24 11:11 11/29/24 11:17 Ketorolac 30mg/Ml Vial IM 11/29/24 11:12 Not Given ONCE ONE Methocarbamol 1,000 mg 11/29/24 10:04 11/29/24 10:41 Methocarbamol 500mg Tablet PO 11/29/24 10:05 Not Given ONCE ONE ORDERS Category Date Time Status Ankle XR -Right minimum 3 Views [XR ankle RT min 3V] Exams 11/29/24 10:11 Completed Stat Foot XR right minimum 3 views [XR foot RT min 3V] Stat Exams 11/29/24 10:11 Completed Tibia/fibula XR left 2 views [XR tibia fibula LT 2V] Exams 11/29/24 10:11 Completed Stat Tibia/fibula XR right 2 views [XR tibia fibula RT 2V] Exams 11/29/24 10:11 Completed Stat CK [Creatine Kinase] Stat Lab 11/29/24 10:40 Completed Complete Blood Count Auto Diff Stat Lab 11/29/24 10:40 Completed Comprehensive Metabolic Panel Stat Lab 11/29/24 10:40 Completed Lactic Acid Stat Lab 11/29/24 10:03 Ordered Medical Decision Narrative: In summary, this patient is a 54-year-old female presenting to the Emergency Department for evaluation of bilateral leg pain after running a 5K last week. Differential diagnoses considered include but are not limited to tendinitis, musculoskeletal strain/sprain, stress fracture, muscle soreness, rhabdomyolysis. Ruling out the most morbid conditions drove assessment. It should be noted patient's history includes CAD status post stenting, hypertension, hyperlipidemia which may or may not be at goal therapy. This complicates all aspects of care by increasing patient's risk for morbidity. I reviewed patient's past medical records and noted prior cardiology evaluations for CAD and maintenance of health. On exam, the patient is lying in bed in no acute distress. She has tenderness to palpation of the medial aspect of both lower legs just below the knee as well as right ankle swelling with no redness, warmth. She is neurovascularly intact distally. All compartments are soft. Workup included CBC, CMP, CK, x-rays of the painful lower extremities. She was given oral Tylenol for symptomatic improvement. She was offered Robaxin and Toradol, but she declined. I independently interpreted x-ray prior to the radiologist read and noted no acute fracture. Please see their read for final interpretation. Labs were obtained that demonstrated reassuring CBC with no significant leukocytosis, reassuring chemistry with normal kidney function, normal CK. On reassessment, patient is resting comfortably. Exam remains reassuring. I feel she likely has tendinitis as a cause of her pain. She also has right ankle pain and swelling, with negative x-rays. She was offered walking boot but states that she is walking okay without 1. At this time, I feel that she is appropriate for discharge home with close follow-up and instructions for supportive care. She has an ibuprofen allergy which she states was a rash a long time ago when she took it. I did prescribe her Voltaren gel as well as Robaxin to have as needed for pain. I advised that she try the Voltaren on a very small area to make sure she does not have any sort of localized reaction prior to using it. She was discharged with strict return precautions and instructions for close follow-up Critical Care Critical Care Time Critical Care Time: No
[2024-11-29] MEDS: ACETAMINOPHEN 500MG TAB 1000 MG PO (10:30)
[2024-11-29] MEDS: LACTATED RINGERS 1000ML 1,000 ML 999 ML IV (10:35)
[2024-11-29 10:50] LABS: Basophils % 0.6 % (0.1-2.0); Eosinophils % 0.8 % (0.1-12.0); Hematocrit 41.8 % (37.0-47.0); Lymphocytes # 1.5 K/mm3 (0.7-4.5); Lymphocytes % 28.4 % (10-50); Mean Corpuscular HGB Conc 33.5 g/dL (31.8-35.4); Mean Corpuscular Hemoglobin 32.3 pg (27.0-31.2); Mean Corpuscular Volume 96.5 fl (81-99); Mean Platelet Volume 9.2 fl (7.4-10.4); Monocytes # 0.4 K/mm3 (0.1-1.0); Monocytes % 6.9 % (1.7-9.3); Neutrophils # 3.3 K/mm3 (1.8-7.8); Neutrophils % 63.1 % (37.0-80.0); Nucleated Red Blood Cells # 0 10^3/uL; Nucleated Red Blood Cells % 0 %; Platelet Count 336 K/mm3 (142-424); Red Blood Count 4.33 M/mm3 (4.20-5.40); Red Cell Distribution Width 13.6 % (11.5-17.5); White Blood Count 5.2 K/mm3 (4.8-10.8)
[2024-11-29 10:56] LABS: Albumin Level 4.3 g/dl (3.5-5.0); Chloride 111 mmol/L (98-107); Potassium 4.4 mmoL/L (3.5-5.1); Sodium 143 mmol/L (136-145)
[2024-11-29 10:58] LABS: Alanine Aminotransferase 16 U/L (12-78); Aspartate Amino Transferase 31 U/L (14-36); Blood Urea Nitrogen 8 mg/dl (7-17); Creatinine Clearance Estimated 113 mL/min (50-200); Estimated Glomerular Filt Rate 105 ml/min (>60); GFR (African American) 127 ML/MIN (>60)
[2024-11-29 10:59] LABS: Albumin/Globulin Ratio 1.5 (1.1-1.8); Alkaline Phosphatase 76 U/L (38-126); Anion Gap 9.4 mEq/L (5-15); Bilirubin,Total 0.6 mg/dl (0.2-1.3); Calcium 8.8 mg/dl (8.4-10.2); Carbon Dioxide 27 mmol/L (22.0-30.0); Creatine Kinase 96 U/L (30-135); Globulin 2.9 g/dL (1.3-3.2); Glucose 89 mg/dl (74-100); Total Protein,Serum 7.2 g/dl (6.3-8.2)
[2024-11-29 11:19] VITALS: BP 128/74; PULSE 88; RESP 18; TEMP 37.1; O2SAT 99
== END 2024-11-29 11:29 | disposition home or self-care (01) ==
PROVIDERS: Emergency Provider Emergency Medicine; PCP Family Medicine
DX: M76.891 Other specified enthesopathies of right lower limb, excluding foot (principal); M76.892 Other specified enthesopathies of left lower limb, excluding foot; M25.471 Effusion, right ankle
CPT/HCPCS: 73590; 73610; 73630; 80053; 82550; 85025; 96360; 96361; 96372; 96374; 99284; J1885; J7120

== ENCOUNTER 2025-01-05 07:58 | Day surgery (SDC) | payer BC, SELFPAY ==
[2025-01-05 08:45] VITALS: BMI 52.0
[2025-01-05] MEDS: LACTATED RINGERS 1000ML 1,000 ML 50 ML IV (08:47)
[2025-01-05 08:48] VITALS: BP 102/62; PULSE 85; RESP 18; TEMP 36.7; O2SAT 97
--- NOTE | 2025-01-05 09:05 | P.PNANES_ITS ---
[facility] Disclaimer: The information contained in this section may have been updated after the patient was seen, as this information can be updated by other users. Medical History Hx of myocardial infarction Hx of hemorrhoids Encounter for pre-operative cardiovascular clearance Abnormal echocardiogram SOB (shortness of breath) Daytime sleepiness Fatigue Hyperlipidemia Surgical History Hx of tubal ligation Hx of breast augmentation History of cholecystectomy Family History (Updated 01/05/25 @ 08:42 by Maria Luisa Lal RN) Other Colon cancer Coronary artery disease Family history of Alzheimer's disease Family history of COPD (chronic obstructive pulmonary disease) Family history of myocardial infarction Heart attack Hyperlipidemia Hypertension Lung cancer Social History (Updated 01/05/25 @ 08:43 by Maria Luisa Lal RN) Smoking Status: Current every day smoker alcohol intake: never substance use type: denies use current occupational status: employed Travel in the last 8 weeks?: [place] the [place] household members: spouse housing: house caffeine: Yes Have you lived/traveled outside US in past 30 days?: No Contact w/someone who lives/traveled outside US past 30 days?: No Exposure to someone with infectious disease in past 14 days?: No Do you have a fever (greater than 100.4 F or 38 C)?: No Have you tested positive for COVID-19?: No Exposed to someone with COVID-19 in past 14 days?: No Do you have a sore throat?: No Do you have a cough?: No Do you have any weakness?: No Are you experiencing any nausea/vomitting?: No Do you have any diarrhea?: No Are you experiencing any unusual bleeding?: No Do you have any muscle aches/pain?: No Do you have any abdominal pain?: No Are you experiencing loss of taste or smell?: No [facility] Anesthesia Checklist Patient Identification Patient Identification: Arm Band and Verbal (Name & ) Structural Data Admitted From: Home Planned Operative Procedure/s: colonoscopy Verified Documents: Surgical Consent NPO Status Verified Time NPO: 00:00 Additional verifications Anesthesia Reactions: No Hx Blood Transfusions: No Airway Assessment Mallampati Score:: Class II C-Spine Mobility Assessed: Yes TMJ Mobility Assessed: Yes Dentition: Dentures-good fit Neurological Assessment Level of Consciousness: Awake, Alert and Appropriate Hx Seizures: No Numbness or tingling in extremities: No Anesthesia Plan Anesthesia Plan: Verified ASA Class: II Anesthesia Type: MAC
--- NOTE | 2025-01-05 09:09 | P.HP_ITS ---
History of Present Illness *Admission Date: 01/05/25 *Reason for visit:: Screening for colon cancer *History of present illness: Mrs. Rivas is a 54-year-old female who is here for screening for colon cancer. The examination is deemed medically necessary for screening colonoscopy. The pa tiechristiano does have prolapsing internal hemorrhoids which are bothersome. The patient has been seen, interviewed and examined prior to the procedure by both myself and the anesthesia provider. [facility] Disclaimer: The information contained in this section may have been updated after the patient was seen, as this information can be updated by other users. Medical History (Updated 01/05/25 @ 09:20 by Hitesh Izquierdo II, MD) Hx of myocardial infarction Hx of hemorrhoids Encounter for pre-operative cardiovascular clearance Abnormal echocardiogram SOB (shortness of breath) Daytime sleepiness Fatigue Hyperlipidemia Surgical History Hx of tubal ligation Hx of breast augmentation History of cholecystectomy Family History (Updated 01/05/25 @ 08:42 by Maria Luisa Lal RN) Other Colon cancer Coronary artery disease Family history of Alzheimer's disease Family history of COPD (chronic obstructive pulmonary disease) Family history of myocardial infarction Heart attack Hyperlipidemia Hypertension Lung cancer Social History (Updated 01/05/25 @ 08:43 by Maria Luisa Lla RN) Smoking Status: Current every day smoker alcohol intake: never substance use type: denies use current occupational status: employed Travel in the last 8 weeks?: [place] the [place] household members: spouse housing: house caffeine: Yes Have you lived/traveled outside US in past 30 days?: No Contact w/someone who lives/traveled outside US past 30 days?: No Exposure to someone with infectious disease in past 14 days?: No Do you have a fever (greater than 100.4 F or 38 C)?: No Have you tested positive for COVID-19?: No Exposed to someone with COVID-19 in past 14 days?: No Do you have a sore throat?: No Do you have a cough?: No Do you have any weakness?: No Are you experiencing any nausea/vomitting?: No Do you have any diarrhea?: No Are you experiencing any unusual bleeding?: No Do you have any muscle aches/pain?: No Do you have any abdominal pain?: No Are you experiencing loss of taste or smell?: No Other Medical History Have you received the Flu Vaccine for this season: No Have you received the Pneumonia Vaccine: No Review of Systems Review of Systems Review of systems (narrative): Negative *Cardiovascular Comments: Negative *Gastrointestinal Comments: Negative *Genitourinary Comments: Negative *Musculoskeletal Comments: Negative *Neurologic Comments: Negative Meds Home Medications and Allergies Home Medications ?Medication ?Instructions ?Recorded ?Confirmed ?Type aspirin 81 mg tablet,delayed 81 mg PO DAILY heart 04/0401/05/25 History release (Adult Low Dose Aspirin) nitroglycerin 0.4 mg sublingual 0.4 mg sublingual Q5MI [employer] PRN Chest 11/08/20 01/05/25 History tablet Pain omeprazole 20 mg tablet,delayed 20 mg PO DAILY GERD 01/05/25 History release rosuvastatin 20 mg tablet See Rx Instructions .Route 0 02/11/24 01/05/25 Rx .COMPLEX #30 tabs New Prescriptions to Start Prescriptions: Allergies Allergy/AdvReac Type Severity Reaction Status Date / Time ibuprofen (IBUPROFEN) Allergy Intermediate I-RASH Verified 12/13/24 15:25 Exam Data for Last 24 hours Vital signs and Labs for Last 24 Hours: Temp Pulse Resp BP Pulse Ox O2 Del Method 98.0 F 85 18 102/62 L 97 Room Air 01/05/25 08:48 01/05/25 08:48 01/05/25 08:48 01/05/25 08:48 01/05/25 08:48 01/05/25 08:48 I & O for Last 24 hours: Intake & Output 01/02/25 01/03/25 01/04/25 01/05/25 23:59 23:59 23:59 23:59 Weight 313 lb 0.902 oz *Routine HEENT Exam Head: Present normocephalic Eye: Present EOMI and PERRL ENT: Present mucous membranes moist *Routine Neck Exam Neck: Present supple *Routine Respiratory Exam Respiratory: Present CTA bilaterally *Routine Cardiovascular Exam Cardiovascular: Present RRR *Routine Abdominal Exam Abdominal: Present soft and normoactive bowel sounds; Absent tenderness *Routine Rectal Exam Rectal:: deferred *Routine Genitalia Exam Genitalia:: deferred *Routine Extremities Exam Extremities: Absent cyanosis, clubbing or edema *Routine Skin Exam Skin: Present warm; Absent rash *Routine Neurological Exam Neurological: Present alert and oriented X3 Assessment and Plan *Assessment and plan (1) Screening for colon cancer: Status: Acute Category: Medical Code(s): Z12.11 - Encounter for screening for malignant neoplasm of colon (2) Prolapsed internal hemorrhoids: Status: Acute Category: Medical Code(s): K64.8 - Other hemorrhoids Plan A/P: 1. Screening for colon cancer is the preprocedural diagnosis. The patient will be anesthetized/sedated using MAC sedation. The patient has been seen and examined. Cardiac and lung assessment prior to the examination is stable. Proceed with planned screening colonoscopy.
--- NOTE | 2025-01-05 09:21 | P.PCN_ITS ---
[facility] Procedure Note Date: 01/05/25 Time: 09:49 Procedure Note:: Colonoscopy Procedure Report: Colonoscopy with cold snare polypectomy Endoscopist: Hitesh Izquierdo II, MD Referring physician: Rodolfo Kimbrough MD/Gary Goode M.D. Date of Procedure: January 05, 2025 Equipment: Olympus 190 variable stiffness pediatric colonoscope Sedation: MAC sedation Indication: Mrs. Rivas is a 54-year-old female who is here for initial screening colonoscopy. She did have a negative Cologuard test 3 to 4 years ago. She reports no abdominal pain, weight loss, change in her bowel habits or rectal bleeding. She does state that her paternal grandmother had colon cancer. The patient has had some chronic constipation. She reports some hemorrhoidal prolapse which is bothersome. She did have hemorrhoid surgery at the age of 20. Procedure: Prior to the procedure, a history and physical exam was performed, and patient's medications and allergies were reviewed. The risks, benefits and alternatives of the sedation and procedure were discussed with the patient. All questions were answered and informed consent was obtained. The patient was brought to the procedure room. Patient identification and proposed procedure were verified by the physician and the nurse. The patient was placed in a left lateral decubitus position and the scope was passed under direct vision. Throughout the procedure, the patient's blood pressure, pulse, and oxygen saturations were monitored continuously. The colonoscopy was accomplished without difficulty. The patient tolerated the procedure well. Findings: On digital rectal examination there was normal rectal tone. There was mild hemorrhoidal prolapse. The colonoscope was introduced through the anal canal to the rectum and advanced to the cecum. The ileocecal valve and appendiceal orifice were identified. The scope was advanced a short distance into the ileum which appeared grossly normal. The scope was then withdrawn into the colon. There were 6 polyps (cecum x 1 (10 to 11 mm flat polyp with mucus?probable serrated adenoma), ascending x 2 (18 mm polyp over haustral fold with mucus cap and smaller 3 mm polyp), transverse x 2 (8 mm polyp with mucus cap and smaller 4 mm polyp) and rectum x 1 (4 mm)). These were all removed via cold snare polypectomy and larger with cold snare piecemeal resection. The remaining cecum, ascending and transverse colon and mucosa were grossly normal. There were very mildly scattered shallow small mouth diverticuli throughout the descending and sigmoid colon (LEFT colon). The rectum itself was normal. Upon retroflexion within the rectum there were grade 2 internal hemorrhoids. The preparation was excellent throughout with [place] Preparation Score of 9. The cecal time was 17 minutes. Impression: 1. Colonic polyps x 6 (at least 3 with mucus cap and larger?probable serrated adenomas) 2. Mild sigmoid diverticulosis 3. Grade 2 internal hemorrhoids Plan: I will follow-up the polyp histology and recommend repeat surveillance colonoscopy in 3 years. I am going to recommend the patient begin a fiber bowel regimen (combined MiraLAX plus Konsyl).
[2025-01-05 09:53] VITALS: BP 92/57; PULSE 71; RESP 16; TEMP 36.2; O2SAT 99
[2025-01-05 10:03] VITALS: BP 115/47; PULSE 90; RESP 18; TEMP 36.2; O2SAT 100
[2025-01-05 10:13] VITALS: BP 106/74; PULSE 87; RESP 18; TEMP 36.2; O2SAT 99
[2025-01-05 10:23] VITALS: BP 104/78; PULSE 88; RESP 16; TEMP 36.2; O2SAT 100
== END 2025-01-05 10:49 | disposition home or self-care (01) ==
PROVIDERS: PCP Family Medicine; Visit Provider Internal Medicine Gastroenterology
PROC: 0DJD8ZZ Inspection of Lower Intestinal Tract, Via Natural or Artificial Opening Endoscopic (ICD-10-PCS; CPT 45378; principal; 2025-01-05 09:30)
DX: Z12.11 Encounter for screening for malignant neoplasm of colon (principal); D12.2 Benign neoplasm of ascending colon; D12.0 Benign neoplasm of cecum; D12.3 Benign neoplasm of transverse colon; D12.8 Benign neoplasm of rectum; K59.09 Other constipation; K57.30 Diverticulosis of large intestine without perforation or abscess without bleeding; K64.1 Second degree hemorrhoids; I25.2 Old myocardial infarction; E78.5 Hyperlipidemia, unspecified; F17.200 Nicotine dependence, unspecified, uncomplicated; Z79.899 Other long term (current) drug therapy; Z79.82 Long term (current) use of aspirin; Z88.8 Allergy status to other drugs, medicaments and biological substances; Z80.0 Family history of malignant neoplasm of digestive organs
CPT/HCPCS: 45385; J7120